=== PATIENT | male | born 1955 | race Caucasian/White ===

== ENCOUNTER 2017-12-27 18:35 | Emergency (ER) | payer MEDICAID ==
[~2017-12-27] VITALS: Ht 172.7 cm; Wt 81.6 kg
[~2017-12-27 18:35] MED LIST: ENA10T PO
[2017-12-27 18:36] VITALS: BP 126/69
== END 2017-12-27 21:54 | disposition left against medical advice (07) ==
LOC: EDBD 18:35 → ER 18:40
DX: F10.10 Alcohol abuse, uncomplicated (principal); Z53.21 Procedure and treatment not carried out due to patient leaving prior to being seen by health care provider

== ENCOUNTER 2018-08-30 18:10 | Emergency (ER) | payer MEDICAID ==
[~2018-08-30] VITALS: Ht 175.3 cm; Wt 86.2 kg
[2018-08-30 18:30] VITALS: BP 171/103
== END 2018-08-30 22:46 | disposition left against medical advice (07) ==
LOC: ER 18:10
DX: R10.9 Unspecified abdominal pain (principal); Z53.21 Procedure and treatment not carried out due to patient leaving prior to being seen by health care provider
CPT/HCPCS: 74176

== ENCOUNTER 2022-10-06 12:15 | Inpatient (IN) | payer OTHER, MEDICAID ==
[~2022-10-06] VITALS: Ht 175.3 cm; Wt 84.1 kg
[~2022-10-06 12:15] MED LIST changes: -ENA10T PO; +ENAL10TA12 PO
[2022-10-06 13:00] LABS: Basophils # (auto) 0.1 10 ^3/uL (0-0.2); Basophils % (auto) 2.3 % (0.0-2.0); Eosinophils # (auto) 0.1 10 ^3/uL (0-0.8); Eosinophils % (auto) 1.9 % (0.0-7.0); Hematocrit 50.2 % (41.0-53.0); Hemoglobin 17.2 g/dL (13.5-17.5); Lymphocytes # (auto) 1.4 10 ^3/uL (0.4-5.4); Lymphocytes % (auto) 22.6 % (10.0-50.0); Mean Corpuscular Hgb Conc. 34.4 g/dL (32.0-36.0); Mean Corpuscular Volume 98.9 fL (80.0-100.0); Monocytes # (auto) 0.8 10 ^3/uL (0-1.3); Monocytes % (auto) 12.2 % (0.0-12.0); Neutrophils # (auto) 3.9 10 ^3/uL (1.6-8.6); Nucleated Red Blood Cells % 0.2 %; Red Blood Cells 5.07 10^6/uL (4.5-5.90); Red Cell Distribution Width 12.8 % (11.8-14.3); White Blood Cell 6.4 10^3/uL (4.4-10.8)
[2022-10-06] MEDS ORDERED: predniSONE 20 MG TAB PO ONE ×2 (13:00→17:45)
[2022-10-06] MEDS ORDERED: ALBUTEROL SULF 2.5 MG/0.5ML(0.5%) NEB SOLN NEB ONE (13:00)
[2022-10-06] MEDS ORDERED: IPRATROPIUM BROM 0.5 MG/2.5ML INH SOL NEB ONE (13:00)
[2022-10-06 13:10] LABS: Albumin 3.3 g/dL (3.4-5.0); Calcium 8.7 mg/dL (8.5-10.1); Potassium 4.4 mmol/L (3.5-5.1)
[2022-10-06 13:13] LABS: Bilirubin, Total 1.8 mg/dL (0.2-1.0)
[2022-10-06] MEDS ORDERED: dilTIAZem 25 MG/5 ML VIAL IV ONE ×3 (14:15→16:15)
[2022-10-06] MEDS ORDERED: HEPARIN SODIUM (PORCINE) 5000 UNITS/ML 1ML VIAL IV ONE (14:15)
[2022-10-06] MEDS ORDERED: ASPirin 325 MG TAB PO ONE (14:15)
[2022-10-06] MEDS ORDERED: CLOPIDOGREL BISULFATE 75 MG TAB PO ONE (14:15)
[2022-10-06 15:10] LABS: INR 1.18 (0.9-1.15); Partial Thromboplastin Time 28.4 sec (24.6-33.4)
[2022-10-06] MEDS ORDERED: AMIODARONE HCL 150 MG in D5W 5% 100 ML IV ONE (16:45)
[2022-10-06] MEDS ORDERED: AMIODARONE 450mg/250ml AE 250 ML IV SCH (17:00)
[2022-10-06] MEDS ORDERED: MORPHINE SULFATE INJ 2 MG/ml SYRG IV PRN ×2 (17:15)
[2022-10-06] MEDS ORDERED: NITROGLYCERIN 0.4 MG SL TAB SL PRN (17:15)
[2022-10-06] MEDS ORDERED: HYDROcodone-ACET 5/325MG TAB PO PRN (17:15)
[2022-10-06] MEDS ORDERED: ACETAMINOPHEN 325 MG TAB PO PRN (17:15)
[2022-10-06] MEDS ORDERED: THIAMINE HCL 100 MG TAB PO ONE (17:30)
[2022-10-06] MEDS ORDERED: SODIUM CHLORIDE 0.9% 1,000 ML IV ONE ×2 (17:30)
[2022-10-06] MEDS ORDERED: CYANOCOBALAMIN 500 MCG TAB PO ONE (17:30)
[2022-10-06] MEDS ORDERED: LORazepam 2MG/ML-1ML VIAL IV PRN (17:30)
[2022-10-06] MEDS: HEPARIN DRIP/D5W 100UNITS/ML 250 ML IV SCH ×2 (17:34→18:13)
[2022-10-06] MEDS ORDERED: PANTOPRAZOLE 40 MG/10 ML VIAL INJ IV ONE (18:30)
[2022-10-06] MEDS ORDERED: NITROGLYCERIN 0.4MG/HR TOPICAL PATCH TD ONE (18:30)
[2022-10-06 21:13] LABS: Urine WBC None Seen /hpf (0 - 3)
[2022-10-06 21:25] LABS: Urine Bacteria NONE SEEN /hpf (None Seen); Urine Blood Negative /uL (Negative); Urine Specific Gravity 1.021 (1.001-1.035)
[2022-10-06 21:46] LABS: Amphetamine Screen, Urine POSITIVE (NEGATIVE); Barbiturate Scree,Urine NEGATIVE (NEGATIVE); Benzodiazephine Screen, Urine NEGATIVE (NEGATIVE); Cannabinoid Screen, Urine POSITIVE (NEGATIVE); Cocaine Screen, Urine NEGATIVE (NEGATIVE); Opiate Scree,Urine NEGATIVE (NEGATIVE)
[2022-10-06 21:52] LABS: Phencyclidine Screen, Urine NEGATIVE (NEGATIVE)
[2022-10-06] MEDS: ATORVASTATIN 20 MG TAB PO SCH (22:07)
[2022-10-06] MEDS: AMIODARONE 450mg/250ml AE 250 ML IV SCH (22:57)
[2022-10-07 01:10] LABS: INR 1.24 (0.9-1.15); Partial Thromboplastin Time 51.9 sec (24.6-33.4)
[2022-10-07] MEDS ORDERED: APIXABAN 5 MG TAB PO SCH (04:00)
[2022-10-07] MEDS: AMIODARONE 450mg/250ml AE 250 ML IV SCH (05:48)
[2022-10-07 06:45] LABS: Basophils # (auto) 0 10 ^3/uL (0-0.2); Basophils % (auto) 0.4 % (0.0-2.0); Eosinophils # (auto) 0.2 10 ^3/uL (0-0.8); Eosinophils % (auto) 3.1 % (0.0-7.0); Hematocrit 44.1 % (41.0-53.0); Hemoglobin 15.2 g/dL (13.5-17.5); Lymphocytes # (auto) 1.2 10 ^3/uL (0.4-5.4); Lymphocytes % (auto) 21.7 % (10.0-50.0); Mean Corpuscular Hgb Conc. 34.4 g/dL (32.0-36.0); Mean Corpuscular Volume 98.8 fL (80.0-100.0); Monocytes # (auto) 0.7 10 ^3/uL (0-1.3); Neutrophils # (auto) 3.4 10 ^3/uL (1.6-8.6); Neutrophils % (auto) 61.8 % (37.0-80.0); Nucleated Red Blood Cells % 0.6 %; Red Blood Cells 4.46 10^6/uL (4.5-5.90); Red Cell Distribution Width 12.9 % (11.8-14.3); White Blood Cell 5.5 10^3/uL (4.4-10.8)
[2022-10-07 06:55] LABS: INR 1.22 (0.9-1.15); Partial Thromboplastin Time 53.6 sec (24.6-33.4)
[2022-10-07 06:58] LABS: Albumin 2.9 g/dL (3.4-5.0); Calcium 8.1 mg/dL (8.5-10.1); Potassium 4.3 mmol/L (3.5-5.1)
[2022-10-07 07:02] LABS: BUN/Creatinine Ratio 18.2; Bilirubin, Total 2.5 mg/dL (0.2-1.0); Total Protein 7.2 g/dL (6.4-8.2)
[2022-10-07] MEDS ORDERED: METOPROLOL SUCCINATE XL 50 MG TAB PO SCH (10:00)
[2022-10-07] MEDS: CYANOCOBALAMIN 500 MCG TAB PO SCH (10:00)
[2022-10-07] MEDS ORDERED: PANTOPRAZOLE 40 MG/10 ML VIAL INJ IV SCH (10:00)
[2022-10-07] MEDS: THIAMINE HCL 100 MG TAB PO SCH (10:00)
[2022-10-07] MEDS: ASPirin 81 mg TAB PO SCH (10:00)
[2022-10-07] MEDS: CLOPIDOGREL BISULFATE 75 MG TAB PO SCH (13:14)
[2022-10-07 13:21] LABS: INR 1.2 (0.9-1.15); Partial Thromboplastin Time 53.5 sec (24.6-33.4)
[2022-10-07] MEDS: HEPARIN DRIP/D5W 100UNITS/ML 250 ML IV SCH (15:23)
[2022-10-07] MEDS ORDERED: APIXABAN 5 MG TAB PO ONE (16:00)
[2022-10-07] MEDS: FUROSEMIDE 20 MG/2 ML VIAL IV SCH (18:43)
[2022-10-07 20:22] VITALS: BP 101/74
[2022-10-07] MEDS ORDERED: IBUP400T22 PO (20:35)
[2022-10-07] MEDS ORDERED: CARVEDILOL 12.5 MG TAB PO SCH (22:00)
[2022-10-07 22:10] VITALS: BP 102/67
[2022-10-07] MEDS: ATORVASTATIN 20 MG TAB PO SCH (22:21)
[2022-10-07] MEDS: SACUBITRIL-VALSARTAN 24mg/26mg TAB PO SCH (22:22)
[2022-10-08] VITALS (7 sets, daily range): BP systolic 78–102; BP diastolic 51–76
[2022-10-08] MEDS ORDERED: APIXABAN 5 MG TAB PO SCH (04:00)
[2022-10-08] MEDS: FUROSEMIDE 20 MG/2 ML VIAL IV SCH ×2 (06:00→18:00)
[2022-10-08] MEDS: EMPAGLIFLOZIN 10 MG TAB PO SCH (06:18)
[2022-10-08 06:36] LABS: Basophils # (auto) 0 10 ^3/uL (0-0.2); Eosinophils # (auto) 0.1 10 ^3/uL (0-0.8); Monocytes # (auto) 0.6 10 ^3/uL (0-1.3); Red Cell Distribution Width 12.9 % (11.8-14.3)
[2022-10-08 06:39] LABS: Basophils % (auto) 0.6 % (0.0-2.0); Eosinophils % (auto) 2.8 % (0.0-7.0); Hematocrit 42.1 % (41.0-53.0); Hemoglobin 14.7 g/dL (13.5-17.5); Lymphocytes % (auto) 23.3 % (10.0-50.0); Mean Corpuscular Hemoglobin 34.6 pg (28.0-32.0); Mean Corpuscular Hgb Conc. 34.9 g/dL (32.0-36.0); Mean Corpuscular Volume 99.1 fL (80.0-100.0); Monocytes % (auto) 14.1 % (0.0-12.0); Neutrophils # (auto) 2.6 10 ^3/uL (1.6-8.6); Neutrophils % (auto) 59.2 % (37.0-80.0); Nucleated Red Blood Cells % 0.2 %; Red Blood Cells 4.25 10^6/uL (4.5-5.90); White Blood Cell 4.4 10^3/uL (4.4-10.8)
[2022-10-08 06:54] LABS: Albumin 2.7 g/dL (3.4-5.0); Bilirubin, Direct 0.6 mg/dL (0-0.2); Calcium 8.2 mg/dL (8.5-10.1); Potassium 4.2 mmol/L (3.5-5.1)
[2022-10-08 06:56] LABS: INR 1.34 (0.9-1.15); Partial Thromboplastin Time 31.1 sec (24.6-33.4)
[2022-10-08 06:58] LABS: BUN/Creatinine Ratio 19.6; Bilirubin, Total 1.5 mg/dL (0.2-1.0); Total Protein 6.9 g/dL (6.4-8.2)
[2022-10-08] MEDS ORDERED: METOPROLOL TARTRATE 50 MG TAB PO SCH (10:00)
[2022-10-08] MEDS: CYANOCOBALAMIN 500 MCG TAB PO SCH (10:29)
[2022-10-08] MEDS: THIAMINE HCL 100 MG TAB PO SCH (10:30)
[2022-10-08] MEDS: ASPirin 81 mg TAB PO SCH (10:30)
[2022-10-08] MEDS: PANTOPRAZOLE 40 MG TAB PO SCH (10:33)
[2022-10-08] MEDS: SACUBITRIL-VALSARTAN 24mg/26mg TAB PO SCH ×2 (10:34→21:44)
[2022-10-08] MEDS: CARVEDILOL 12.5 MG TAB PO SCH ×2 (10:39→21:44)
[2022-10-08] MEDS: LORazepam 0.5 MG TAB PO PRN (10:40)
[2022-10-08] MEDS ORDERED: FUROSEMIDE 40 MG/4 ML VIAL IV ONE (10:45)
[2022-10-08] MEDS: CLOPIDOGREL BISULFATE 75 MG TAB PO SCH (11:02)
[2022-10-08] MEDS: ATORVASTATIN 20 MG TAB PO SCH (22:02)
[2022-10-09 05:00] VITALS: BP 89/62
[2022-10-09] MEDS: FUROSEMIDE 20 MG/2 ML VIAL IV SCH ×2 (05:46→18:29)
[2022-10-09] MEDS: EMPAGLIFLOZIN 10 MG TAB PO SCH (06:46)
[2022-10-09 08:00] VITALS: BP 108/68
[2022-10-09 09:00] VITALS: BP 108/68
[2022-10-09] MEDS: THIAMINE HCL 100 MG TAB PO SCH (10:28)
[2022-10-09] MEDS: CARVEDILOL 12.5 MG TAB PO SCH ×2 (10:28→21:52)
[2022-10-09] MEDS: ASPirin 81 mg TAB PO SCH (10:28)
[2022-10-09] MEDS: PANTOPRAZOLE 40 MG TAB PO SCH (10:29)
[2022-10-09] MEDS: CYANOCOBALAMIN 500 MCG TAB PO SCH (10:29)
[2022-10-09] MEDS: SACUBITRIL-VALSARTAN 24mg/26mg TAB PO SCH ×2 (10:29→21:52)
[2022-10-09 10:37] LABS: Basophils # (auto) 0 10 ^3/uL (0-0.2); Lymphocytes # (auto) 0.8 10 ^3/uL (0.4-5.4); Monocytes # (auto) 0.7 10 ^3/uL (0-1.3); Neutrophils # (auto) 3.7 10 ^3/uL (1.6-8.6)
[2022-10-09 10:42] LABS: Basophils % (auto) 0.5 % (0.0-2.0); Eosinophils # (auto) 0.2 10 ^3/uL (0-0.8); Eosinophils % (auto) 2.9 % (0.0-7.0); Hematocrit 45.1 % (41.0-53.0); Hemoglobin 15.6 g/dL (13.5-17.5); Lymphocytes % (auto) 15.1 % (10.0-50.0); Mean Corpuscular Hemoglobin 34.3 pg (28.0-32.0); Mean Corpuscular Hgb Conc. 34.7 g/dL (32.0-36.0); Mean Corpuscular Volume 98.9 fL (80.0-100.0); Monocytes % (auto) 13.5 % (0.0-12.0); Nucleated Red Blood Cells % 0.1 %; Red Blood Cells 4.56 10^6/uL (4.5-5.90); Red Cell Distribution Width 12.6 % (11.8-14.3); White Blood Cell 5.5 10^3/uL (4.4-10.8)
[2022-10-09 11:49] LABS: Albumin 2.9 g/dL (3.4-5.0); Bilirubin, Total 1.2 mg/dL (0.2-1.0); Calcium 8.5 mg/dL (8.5-10.1); Total Protein 7.1 g/dL (6.4-8.2)
[2022-10-09 13:00] VITALS: BP 111/61
[2022-10-09 16:51] VITALS: BP 109/67
[2022-10-09 21:55] VITALS: BP 119/64
[2022-10-09] MEDS: ATORVASTATIN 20 MG TAB PO SCH (22:49)
[2022-10-09] MEDS: LORazepam 0.5 MG TAB PO PRN (22:59)
[2022-10-10 06:00] VITALS: BP 95/70
[2022-10-10] MEDS: FUROSEMIDE 20 MG/2 ML VIAL IV SCH ×2 (06:16→19:09)
[2022-10-10] MEDS: EMPAGLIFLOZIN 10 MG TAB PO SCH (06:18)
[2022-10-10 07:04] LABS: Basophils # (auto) 0 10 ^3/uL (0-0.2); Eosinophils # (auto) 0.2 10 ^3/uL (0-0.8); Lymphocytes # (auto) 0.8 10 ^3/uL (0.4-5.4); Neutrophils # (auto) 3.8 10 ^3/uL (1.6-8.6)
[2022-10-10 07:08] LABS: Basophils % (auto) 0.6 % (0.0-2.0); Eosinophils % (auto) 3.1 % (0.0-7.0); Hematocrit 48.1 % (41.0-53.0); Hemoglobin 16.9 g/dL (13.5-17.5); Lymphocytes % (auto) 14.4 % (10.0-50.0); Mean Corpuscular Hemoglobin 34.9 pg (28.0-32.0); Mean Corpuscular Hgb Conc. 35.1 g/dL (32.0-36.0); Mean Corpuscular Volume 99.3 fL (80.0-100.0); Monocytes # (auto) 0.9 10 ^3/uL (0-1.3); Monocytes % (auto) 15.7 % (0.0-12.0); Neutrophils % (auto) 66.2 % (37.0-80.0); Nucleated Red Blood Cells % 0.4 %; Red Blood Cells 4.84 10^6/uL (4.5-5.90); Red Cell Distribution Width 12.6 % (11.8-14.3); White Blood Cell 5.7 10^3/uL (4.4-10.8)
[2022-10-10 08:00] VITALS: BP 153/87
[2022-10-10 08:15] LABS: Albumin 2.8 g/dL (3.4-5.0); BUN/Creatinine Ratio 22.2; Bilirubin, Total 1.3 mg/dL (0.2-1.0); Calcium 8.7 mg/dL (8.5-10.1); Total Protein 7.6 g/dL (6.4-8.2)
[2022-10-10 08:35] LABS: Potassium 3.5 mmol/L (3.5-5.1)
[2022-10-10 09:00] VITALS: BP 153/87
[2022-10-10] MEDS ORDERED: ENOXAPARIN SOD 80 MG/0.8ML SYRINGE SC ONE (10:45)
[2022-10-10] MEDS: CYANOCOBALAMIN 500 MCG TAB PO SCH (11:57)
[2022-10-10] MEDS: ASPirin 81 mg TAB PO SCH (11:57)
[2022-10-10] MEDS: THIAMINE HCL 100 MG TAB PO SCH (11:57)
[2022-10-10] MEDS: CARVEDILOL 12.5 MG TAB PO SCH ×2 (11:57→21:31)
[2022-10-10] MEDS: PANTOPRAZOLE 40 MG TAB PO SCH (11:57)
[2022-10-10] MEDS: SACUBITRIL-VALSARTAN 24mg/26mg TAB PO SCH ×2 (12:24→21:32)
[2022-10-10 20:15] VITALS: BP 100/60
[2022-10-10] MEDS: ATORVASTATIN 20 MG TAB PO SCH (21:32)
[2022-10-10] MEDS: LORazepam 0.5 MG TAB PO PRN (21:33)
[2022-10-10 22:00] VITALS: BP 100/60
[2022-10-11 05:00] VITALS: BP 89/64
[2022-10-11] MEDS: FUROSEMIDE 20 MG/2 ML VIAL IV SCH (06:00)
[2022-10-11] MEDS: EMPAGLIFLOZIN 10 MG TAB PO SCH (06:37)
[2022-10-11 07:21] LABS: White Blood Cell 7.1 10^3/uL (4.4-10.8)
[2022-10-11 07:23] LABS: Hematocrit 51.8 % (41.0-53.0); Hemoglobin 18.3 g/dL (13.5-17.5); Mean Corpuscular Hemoglobin 34.4 pg (28.0-32.0); Mean Corpuscular Hgb Conc. 35.3 g/dL (32.0-36.0); Mean Corpuscular Volume 97.4 fL (80.0-100.0); Red Blood Cells 5.32 10^6/uL (4.5-5.90)
[2022-10-11 07:32] LABS: Albumin 3.1 g/dL (3.4-5.0); Potassium 3.6 mmol/L (3.5-5.1)
[2022-10-11 07:38] LABS: Bilirubin, Total 1.5 mg/dL (0.2-1.0); Total Protein 8.2 g/dL (6.4-8.2)
[2022-10-11 08:19] LABS: Band Neutrophils % (manual) 0; Basophils % (manual) 0 (0.0-2.0); Blast Cells 0; Metamyelocytes % 0; Myelocytes % 0; Promyelocytes % 0; Reactive Lymphocytes 0
[2022-10-11 08:57] VITALS: BP 110/74
[2022-10-11] MEDS: SACUBITRIL-VALSARTAN 24mg/26mg TAB PO SCH ×2 (09:14→22:00)
[2022-10-11] MEDS: ASPirin 81 mg TAB PO SCH (09:14)
[2022-10-11] MEDS: CYANOCOBALAMIN 500 MCG TAB PO SCH (09:35)
[2022-10-11] MEDS: PANTOPRAZOLE 40 MG TAB PO SCH (09:35)
[2022-10-11] MEDS: THIAMINE HCL 100 MG TAB PO SCH (09:35)
[2022-10-11] MEDS: CARVEDILOL 12.5 MG TAB PO SCH (09:35)
[2022-10-11] MEDS ORDERED: HEPARIN SODIUM (PORCINE) 5000 UNITS/ML 1ML VIAL ONE (12:03)
[2022-10-11] MEDS ORDERED: ANGIOMAX 250 MG VIAL IV ONE ×2 (12:03→13:35)
[2022-10-11] MEDS ORDERED: fentaNYL CITRATE 100 MCG/2 ML VL ONE (12:04)
[2022-10-11] MEDS ORDERED: MIDAZOLAM HCL 2MG/2ML 2ml VIAL (1mg/ml) ONE (12:04)
[2022-10-11] MEDS ORDERED: VERAPAMIL 2.5MG/ML INJ 2ML VIAL IV ONE (12:04)
[2022-10-11] MEDS ORDERED: SODIUM CHL 0.9% 50 ML ONE ×2 (12:04→13:35)
[2022-10-11] MEDS ORDERED: LIDOCAINE 2%HCL (LOCAL ANESTH.) INJ 10ml MDV ONE (12:04)
[2022-10-11] MEDS ORDERED: IODIXANOL 320MG/ML 100ML BTL IV ONE (12:08)
[2022-10-11 13:00] VITALS: BP 105/80
[2022-10-11 15:31] LABS: Eosinophils % (manual) 4 (0-7); Lymphocytes % (manual) 9 (10.0-50.0); Monocytes % (manual) 30 (0-12)
[2022-10-11 16:16] VITALS: BP 101/69
[2022-10-11 20:10] VITALS: BP 100/68
[2022-10-11 22:00] VITALS: BP 101/68
[2022-10-11] MEDS: CARVEDILOL 3.125 MG TAB PO SCH (22:00)
[2022-10-11] MEDS: ATORVASTATIN 20 MG TAB PO SCH (22:00)
[2022-10-11] MEDS: LORazepam 0.5 MG TAB PO PRN (23:45)
[2022-10-12 05:00] VITALS: BP 99/63
[2022-10-12] MEDS: EMPAGLIFLOZIN 10 MG TAB PO SCH (06:03)
[2022-10-12 06:18] LABS: Mean Corpuscular Volume 97.9 fL (80.0-100.0); Red Cell Distribution Width 12.9 % (11.8-14.3)
[2022-10-12 06:22] LABS: Hematocrit 51.1 % (41.0-53.0); Hemoglobin 17.6 g/dL (13.5-17.5); Mean Corpuscular Hemoglobin 33.8 pg (28.0-32.0); Mean Corpuscular Hgb Conc. 34.6 g/dL (32.0-36.0); Red Blood Cells 5.21 10^6/uL (4.5-5.90); White Blood Cell 8.7 10^3/uL (4.4-10.8)
[2022-10-12 06:40] LABS: Calcium 8.7 mg/dL (8.5-10.1)
[2022-10-12 06:45] LABS: BUN/Creatinine Ratio 21.9; Bilirubin, Total 2.2 mg/dL (0.2-1.0); Total Protein 7.6 g/dL (6.4-8.2)
[2022-10-12 06:49] LABS: Basophils % (manual) 0 (0.0-2.0); Blast Cells 0; Metamyelocytes % 0; Myelocytes % 0; Promyelocytes % 0; Reactive Lymphocytes 0
[2022-10-12 09:00] VITALS: BP 131/113
[2022-10-12 09:22] LABS: Band Neutrophils % (manual) 15; Eosinophils % (manual) 2 (0-7); Lymphocytes % (manual) 8 (10.0-50.0); Monocytes % (manual) 15 (0-12)
[2022-10-12] MEDS: ASPirin 81 mg TAB PO SCH (09:29)
[2022-10-12] MEDS: SACUBITRIL-VALSARTAN 24mg/26mg TAB PO SCH (09:29)
[2022-10-12] MEDS: CYANOCOBALAMIN 500 MCG TAB PO SCH (09:30)
[2022-10-12] MEDS: THIAMINE HCL 100 MG TAB PO SCH (09:31)
[2022-10-12] MEDS: PANTOPRAZOLE 40 MG TAB PO SCH (09:31)
[2022-10-12] MEDS: CARVEDILOL 3.125 MG TAB PO SCH (09:40)
[2022-10-12 13:00] VITALS: BP 108/76
[2022-10-12] MEDS ORDERED: APIX5TAB4 PO (13:34)
[2022-10-12] MEDS ORDERED: ACAM1TAB4 OR (13:34)
[2022-10-12] MEDS ORDERED: THIA100T10 PO (13:34)
[2022-10-12] MEDS ORDERED: FUR20T PO (13:34)
[2022-10-12] MEDS ORDERED: SACU1TAB PO (13:34)
[2022-10-12] MEDS ORDERED: CAR3125T PO (13:34)
[2022-10-12] MEDS ORDERED: APIXABAN 5 MG TAB PO SCH (22:00)
[2022-10-13] MEDS ORDERED: FUROSEMIDE 40 MG TAB PO SCH (10:00)
== END 2022-10-12 16:47 | disposition home or self-care (01) | DRG 280 ==
LOC: ER 12:15 → TELE 17:19 → TELE-WESTW 10-07 19:58
PROVIDERS: ADMIT Registered Nurse; ATTEND Student in an Organized Health Care Education/Training Program
PROC: B2111ZZ Fluoroscopy of Multiple Coronary Arteries using Low Osmolar Contrast (ICD-10-PCS; principal; 2022-10-11)
PROC: 4A023N7 Measurement of Cardiac Sampling and Pressure, Left Heart, Percutaneous Approach (ICD-10-PCS; 2022-10-11)
DX: I11.0 Hypertensive heart disease with heart failure (principal); I50.23 Acute on chronic systolic (congestive) heart failure; I21.A1 Myocardial infarction type 2; J96.01 Acute respiratory failure with hypoxia; U07.1 COVID-19; E44.0 Moderate protein-calorie malnutrition; I42.9 Cardiomyopathy, unspecified; E66.9 Obesity, unspecified; Z20.822 Contact with and (suspected) exposure to COVID-19; F10.10 Alcohol abuse, uncomplicated; F15.10 Other stimulant abuse, uncomplicated; F12.90 Cannabis use, unspecified, uncomplicated; I25.10 Atherosclerotic heart disease of native coronary artery without angina pectoris; I48.91 Unspecified atrial fibrillation; J44.9 Chronic obstructive pulmonary disease, unspecified; Z79.899 Other long term (current) drug therapy; Z82.49 Family history of ischemic heart disease and other diseases of the circulatory system; Z88.1 Allergy status to other antibiotic agents; Z68.26 Body mass index [BMI] 26.0-26.9, adult; Z72.0 Tobacco use; Z88.8 Allergy status to other drugs, medicaments and biological substances
CPT/HCPCS: 36415; 71046; 76705; 80053; 80061; 80307; 80320; 81001; 82248; 82962; 83036; 83735; 83880; 84443; 84484; 85007; 85025; 85027; 85379; 85610; 85730; 86850; 86900; 86901; 87426; 87804; 93005; 93306; 94640; 96374; 96375; 96376; 99152; 99291; C9113; G0378; J2001; J2250; J7060; Q9967

== ENCOUNTER 2024-03-23 15:16 | Emergency (ER) | payer OTHER, MEDICAID ==
[~2024-03-23] VITALS: Ht 175.3 cm; Wt 99.5 kg
[~2024-03-23 15:16] MED LIST changes: +ACAM1TAB OR; +APIX5TAB4 PO; +CARV-214 PO; -ENAL10TA12 PO; +FUR20T PO; +SACU1TAB PO; +THIA100T10 PO
[2024-03-23 15:56] VITALS: BP 131/81; PULSE 81; RESP 16; TEMP 98.7; O2SAT 96
[2024-03-23] MEDS ORDERED: ALBU108A5 IN (16:08)
[2024-03-23] MEDS ORDERED: SACU1TAB PO (16:08)
[2024-03-23] MEDS ORDERED: CARV-214 PO (16:08)
[2024-03-23] MEDS ORDERED: APIX5TAB4 PO (16:08)
[2024-03-23] MEDS ORDERED: FUR20T PO (16:08)
== END 2024-03-23 16:23 | disposition home or self-care (01) ==
LOC: ER 15:16
DX: I11.0 Hypertensive heart disease with heart failure (principal); I50.9 Heart failure, unspecified; J44.9 Chronic obstructive pulmonary disease, unspecified; Z76.0 Encounter for issue of repeat prescription; Z87.891 Personal history of nicotine dependence; Z88.1 Allergy status to other antibiotic agents

== ENCOUNTER 2024-04-03 18:26 | Inpatient (IN) | payer OTHER, MEDICAID ==
[~2024-04-03] VITALS: Ht 175.3 cm; Wt 100.0 kg
[~2024-04-03 18:26] MED LIST changes: +ALBU108A5 IN
[2024-04-03] MEDS: ALBUTEROL SULF 2.5 MG/0.5ML(0.5%) NEB SOLN ONE (20:03)
[2024-04-03 20:04] VITALS: O2SAT 94
[2024-04-03] MEDS: ACETAMINOPHEN 325 MG TAB PO ONE (20:21)
[2024-04-03] MEDS: ASPirin 81 mg TAB PO ONE (20:21)
[2024-04-03] MEDS: ALBUTEROL SULF 2.5 MG/0.5ML(0.5%) NEB SOLN NEB ONE (20:31)
[2024-04-03] MEDS: FUROSEMIDE 40 MG/4 ML VIAL IV ONE (20:39)
[2024-04-03] MEDS: ONDANSETRON HCL 4 MG/2 ML VIAL IV ONE (20:40)
[2024-04-03] MEDS: SODIUM CHLORIDE 0.9% 500 ML IV ONE (20:45)
[2024-04-03 20:52] LABS: Basophils # (auto) 0 10 ^3/uL (0-0.2); Basophils % (auto) 0.7 % (0.0-2.0); Eosinophils # (auto) 0.2 10 ^3/uL (0-0.8); Hematocrit 39.7 % (41.0-53.0); Hemoglobin 13.6 g/dL (13.5-17.5); Lymphocytes # (auto) 1.6 10 ^3/uL (0.4-5.4); Lymphocytes % (auto) 27.7 % (10.0-50.0); Mean Corpuscular Hemoglobin 34.7 pg (28.0-32.0); Mean Corpuscular Hgb Conc. 34.4 g/dL (32.0-36.0); Mean Corpuscular Volume 100.9 fL (80.0-100.0); Monocytes # (auto) 0.8 10 ^3/uL (0-1.3); Monocytes % (auto) 13.4 % (0.0-12.0); Neutrophils # (auto) 3.2 10 ^3/uL (1.6-8.6); Neutrophils % (auto) 54.2 % (37.0-80.0); Nucleated Red Blood Cells % 0.2 %; Red Blood Cells 3.93 10^6/uL (4.5-5.90); Red Cell Distribution Width 13.5 % (11.8-14.3); White Blood Cell 5.8 10^3/uL (4.4-10.8)
[2024-04-03 21:09] LABS: Alanine Aminotransferase 88 U/L (7-40); Albumin 3.3 g/dL (3.2-4.8); Alkaline Phosphatase 51 U/L (46-116); Anion Gap 11 (5-15); Aspartate Aminotransferase 111 U/L (13-40); BUN/Creatinine Ratio 7.4 (10.0-20.0); Bilirubin, Total 1.1 mg/dL (0.2-1.0); Blood Alcohol 211.1 mg/dL (<10); Blood Urea Nitrogen 8 mg/dL (9-23); Calcium 8.8 mg/dL (8.5-10.1); Carbon Dioxide 19 mmol/L (20-30); Chloride 96 mmol/L (98-107); Glucose 102 mg/dL (74-106); Magnesium 1.6 mg/dL (1.6-2.6); Potassium 3.6 mmol/L (3.5-5.1); Sodium 126 mmol/L (136-145); Total Protein 7.4 g/dL (5.7-8.2)
[2024-04-03 21:15] LABS: Lactic Acid w/Reflex 2.3 mmol/L (0.4-2.0)
[2024-04-03 21:21] LABS: INR 1.38 (0.9-1.15); Partial Thromboplastin Time 31.2 SEC (24.5-34.5); Prothrombin Time 14.3 sec (9.3-11.8)
[2024-04-03] MEDS: cefTRIAXone 1GM/50ML D5W 50 ML IV ONE (21:21)
[2024-04-03] MEDS: ALBUMIN 25% 100 ML IV ONE (21:33)
[2024-04-03 22:00] VITALS: BP 95/48; PULSE 84; RESP 16; O2SAT 96
[2024-04-03] MEDS ORDERED: NITROGLYCERIN 0.4 MG SL TAB SL PRN (22:30)
[2024-04-03] MEDS ORDERED: ACETAMINOPHEN 325 MG TAB PO PRN (22:30)
[2024-04-03] MEDS ORDERED: MORPHINE SULFATE INJ 2 MG/ml SYRG IV PRN (22:30)
[2024-04-03] MEDS ORDERED: ALBUTEROL SULF 2.5 MG/0.5ML(0.5%) NEB SOLN NEB PRN ×2 (22:30)
[2024-04-03] MEDS ORDERED: TEMAZEPAM 15 MG CAP PO PRN (22:30)
[2024-04-03] MEDS: AZITHROMYCIN 500MG/ 250ML 250 ML IV ONE (22:46)
[2024-04-04 05:16] LABS: Basophils # (auto) 0 10 ^3/uL (0-0.2); Eosinophils # (auto) 0.2 10 ^3/uL (0-0.8); Lymphocytes # (auto) 1.3 10 ^3/uL (0.4-5.4); Monocytes # (auto) 0.9 10 ^3/uL (0-1.3); Neutrophils # (auto) 2.7 10 ^3/uL (1.6-8.6)
[2024-04-04 05:18] LABS: Basophils % (auto) 0.7 % (0.0-2.0); Eosinophils % (auto) 4.5 % (0.0-7.0); Hematocrit 38.7 % (41.0-53.0); Hemoglobin 13.3 g/dL (13.5-17.5); Lymphocytes % (auto) 25.6 % (10.0-50.0); Mean Corpuscular Hgb Conc. 34.3 g/dL (32.0-36.0); Monocytes % (auto) 17.5 % (0.0-12.0); Neutrophils % (auto) 51.7 % (37.0-80.0); Nucleated Red Blood Cells % 0.2 %; Red Blood Cells 3.79 10^6/uL (4.5-5.90); Red Cell Distribution Width 13.1 % (11.8-14.3); White Blood Cell 5.1 10^3/uL (4.4-10.8)
[2024-04-04 05:27] LABS: Calcium 8.5 mg/dL (8.5-10.1); Chloride 98 mmol/L (98-107); Potassium 3.4 mmol/L (3.5-5.1); Sodium 128 mmol/L (136-145)
[2024-04-04 05:28] LABS: Anion Gap 10 (5-15); Carbon Dioxide 20 mmol/L (20-30)
[2024-04-04 05:33] LABS: BUN/Creatinine Ratio 7.7 (10.0-20.0); Blood Urea Nitrogen 7 mg/dL (9-23); Glucose 90 mg/dL (74-106)
[2024-04-04] MEDS ORDERED: FUROSEMIDE 20 MG/2 ML VIAL IV SCH (06:00)
[2024-04-04] MEDS: FUROSEMIDE 20 MG/2 ML VIAL IV SCH (06:10)
[2024-04-04 07:07] VITALS: O2SAT 97
[2024-04-04 08:17] VITALS: PULSE 93; RESP 18; O2SAT 95
[2024-04-04] MEDS ORDERED: ASPirin 81 mg TAB PO SCH (10:00)
[2024-04-04] MEDS: APIXABAN 5 MG TAB PO SCH (10:59)
[2024-04-04] MEDS: SACUBITRIL-VALSARTAN 24mg/26mg TAB PO SCH (11:04)
[2024-04-04] MEDS: CARVEDILOL 3.125 MG TAB PO SCH (11:04)
[2024-04-04] MEDS: SPIRONOLACTONE 25 MG TAB PO ONE (11:12)
[2024-04-04] MEDS: POTASSIUM CHL 20 Meq TABLET PO ONE (11:13)
[2024-04-04] MEDS: PANTOPRAZOLE 40 MG TAB PO ONE (11:13)
[2024-04-04] MEDS: ONDANSETRON HCL 4 MG/2 ML VIAL IV PRN (12:22)
[2024-04-04] MEDS: MAGNESIUM OXIDE 400 MG TAB PO ONE (13:42)
[2024-04-04] MEDS ORDERED: ALBU108A5 INH (15:54)
[2024-04-04 21:00] VITALS: BP 135/81; PULSE 86; RESP 16; TEMP 98; O2SAT 96
[2024-04-04] MEDS: LORazepam 2MG/ML-1ML VIAL IV PRN (22:45)
[2024-04-05] VITALS (8 sets, daily range): BP systolic 104–133; BP diastolic 71–100; PULSE 55–98; RESP 16–20; TEMP 97.7–98.5; O2SAT 92–98
[2024-04-05] MEDS ORDERED: IBUP-1456 PO (01:09)
[2024-04-05] MEDS: PANTOPRAZOLE 40 MG TAB PO SCH (06:16)
[2024-04-05 09:16] LABS: Hemoglobin 14.3 g/dL (13.5-17.5)
[2024-04-05 09:20] LABS: Alanine Aminotransferase 72 U/L (7-40); Albumin 3.7 g/dL (3.2-4.8); Alkaline Phosphatase 51 U/L (46-116); Anion Gap 4 (5-15); Aspartate Aminotransferase 82 U/L (13-40); BUN/Creatinine Ratio 11.7 (10.0-20.0); Blood Urea Nitrogen 11 mg/dL (9-23); Calcium 9.6 mg/dL (8.5-10.1); Carbon Dioxide 28 mmol/L (20-30); Chloride 101 mmol/L (98-107); Glucose 113 mg/dL (74-106); Hematocrit 41.6 % (41.0-53.0); Mean Corpuscular Hemoglobin 35.3 pg (28.0-32.0); Mean Corpuscular Hgb Conc. 34.4 g/dL (32.0-36.0); Mean Corpuscular Volume 102.5 fL (80.0-100.0); Potassium 4.1 mmol/L (3.5-5.1); Red Blood Cells 4.06 10^6/uL (4.5-5.90); Red Cell Distribution Width 13.6 % (11.8-14.3); White Blood Cell 4.9 10^3/uL (4.4-10.8)
[2024-04-05 09:21] LABS: Bilirubin, Total 2.5 mg/dL (0.2-1.0); Total Protein 8.1 g/dL (5.7-8.2)
[2024-04-05 09:24] LABS: Sodium 133 mmol/L (136-145)
[2024-04-05 09:25] LABS: Band Neutrophils % (manual) 0; Basophils % (manual) 0 (0.0-2.0); Blast Cells 0; Metamyelocytes % 0; Myelocytes % 0; Promyelocytes % 0; Reactive Lymphocytes 0
[2024-04-05] MEDS: POTASSIUM CHL 20 Meq TABLET PO ONE (10:59)
[2024-04-05] MEDS: SPIRONOLACTONE 25 MG TAB PO SCH (11:00)
[2024-04-05] MEDS: EMPAGLIFLOZIN 10 MG TAB PO SCH (11:00)
[2024-04-05] MEDS: FOLIC ACID 1 MG TAB PO SCH (11:00)
[2024-04-05] MEDS: THIAMINE HCL 100 MG TAB PO SCH (11:00)
[2024-04-05 11:08] LABS: Urine Bacteria None Seen /hpf (None Seen); Urine WBC None Seen /hpf (0 - 3)
[2024-04-05 11:28] LABS: Urine Blood Negative /uL (Negative); Urine Clarity Clear (Clear); Urine Color Light-Yellow (Yellow); Urine Protein, UAD Negative (Negative); Urine Specific Gravity 1.006 (1.001-1.035); Urine Urobilinogen Normal (Negative); Urine pH 5.5 (5.0-9.0)
[2024-04-05 11:46] LABS: Amphetamine Screen, Urine Pos (NEGATIVE); Barbiturate Scree,Urine Neg (NEGATIVE); Benzodiazephine Screen, Urine Neg (NEGATIVE); Cannabinoid Screen, Urine Neg (NEGATIVE); Cocaine Screen, Urine Neg (NEGATIVE); Opiate Scree,Urine Neg (NEGATIVE); Phencyclidine Screen, Urine Neg (NEGATIVE)
[2024-04-05 12:41] LABS: Eosinophils % (manual) 3 (0-7); Lymphocytes % (manual) 17 (10.0-50.0); Monocytes % (manual) 17 (0-12); Platelet Estimate Decreased
[2024-04-05 12:42] LABS: Macrocytosis Slight
[2024-04-05 13:04] LABS: COVID19 ANTIGEN SOFIA FIA NEGATIVE (NEGATIVE); Rapid Influenza A Negative (Negative); Rapid Influenza B Negative (Negative)
[2024-04-05] MEDS: ASPirin 81 mg TAB PO SCH (13:35)
[2024-04-05] MEDS ORDERED: EMPA1TAB PO (13:49)
[2024-04-05] MEDS ORDERED: ASPI-325 PO (13:49)
[2024-04-05] MEDS: chlordiazePOXIDE HCL 25 MG CAP PO PRN (16:03)
[2024-04-05] MEDS: PNEUMOCOCCAL VACC POLYS 25 MCG/0.5 ML VIAL IM ONE (16:26)
== END 2024-04-05 17:42 | disposition home or self-care (01) | DRG 280 ==
LOC: ER 18:26 → TELE 22:36 → TELE-WESTW 22:36
PROVIDERS: ADMIT Internal Medicine Geriatric Medicine; ATTEND Internal Medicine Geriatric Medicine
DX: I11.0 Hypertensive heart disease with heart failure (principal); I50.23 Acute on chronic systolic (congestive) heart failure; I21.A1 Myocardial infarction type 2; J96.21 Acute and chronic respiratory failure with hypoxia; E87.1 Hypo-osmolality and hyponatremia; E87.20 Acidosis, unspecified; F10.129 Alcohol abuse with intoxication, unspecified; J44.9 Chronic obstructive pulmonary disease, unspecified; Z20.822 Contact with and (suspected) exposure to COVID-19; E78.5 Hyperlipidemia, unspecified; I25.10 Atherosclerotic heart disease of native coronary artery without angina pectoris; I48.91 Unspecified atrial fibrillation; I08.1 Rheumatic disorders of both mitral and tricuspid valves; R74.01 Elevation of levels of liver transaminase levels; Z88.1 Allergy status to other antibiotic agents; Z83.3 Family history of diabetes mellitus; Z82.49 Family history of ischemic heart disease and other diseases of the circulatory system; Z82.5 Family history of asthma and other chronic lower respiratory diseases; Y90.7 Blood alcohol level of 200-239 mg/100 ml
CPT/HCPCS: 36415; 71045; 80048; 80053; 80307; 80320; 81001; 83605; 83735; 83880; 84443; 84484; 85007; 85025; 85027; 85610; 85730; 87040; 87086; 87426; 87804; 93005; 93306; 94640; 96361; 96365; 96368; G0378; J2405; P9047

== ENCOUNTER 2024-07-23 21:54 | Inpatient (IN) | payer OTHER, MEDICAID ==
[~2024-07-23] VITALS: Ht 175.3 cm; Wt 86.6 kg
[~2024-07-23 21:54] MED LIST changes: -ACAM1TAB OR; -ALBU108A5 IN; +ALBU108A5 INH; +ASPI-325 PO; +EMPA1TAB PO; -FUR20T PO; +FURO20TA4 PO; +IBUP-1456 PO; -THIA100T10 PO
[2024-07-23 22:57] LABS: Basophils # (auto) 0 10 ^3/uL (0-0.2); Hemoglobin 15.1 g/dL (13.5-17.5); Mean Corpuscular Hemoglobin 37.5 pg (28.0-32.0); Monocytes # (auto) 0.9 10 ^3/uL (0-1.3); Red Blood Cells 4.02 10^6/uL (4.5-5.90); White Blood Cell 7.6 10^3/uL (4.4-10.8)
[2024-07-23 22:59] LABS: Basophils % (auto) 0.5 % (0.0-2.0); Eosinophils # (auto) 0.3 10 ^3/uL (0-0.8); Eosinophils % (auto) 3.5 % (0.0-7.0); Hematocrit 42.3 % (41.0-53.0); Lymphocytes % (auto) 25.7 % (10.0-50.0); Mean Corpuscular Hgb Conc. 35.6 g/dL (32.0-36.0); Mean Corpuscular Volume 105.4 fL (80.0-100.0); Monocytes % (auto) 12.1 % (0.0-12.0); Neutrophils # (auto) 4.4 10 ^3/uL (1.6-8.6); Neutrophils % (auto) 58.2 % (37.0-80.0); Nucleated Red Blood Cells % 0.2 %; Platelet Count (auto) 146 10^3/uL (140-450); Red Cell Distribution Width 13.6 % (11.8-14.3)
[2024-07-23 23:10] LABS: Alanine Aminotransferase 54 U/L (7-40); Albumin 3.8 g/dL (3.2-4.8); Alkaline Phosphatase 56 U/L (46-116); Anion Gap 7 (5-15); Aspartate Aminotransferase 67 U/L (13-40); BUN/Creatinine Ratio 7.1 (10.0-20.0); Bilirubin, Total 0.9 mg/dL (0.2-1.0); Blood Urea Nitrogen 7 mg/dL (9-23); Calcium 9.2 mg/dL (8.7-10.4); Carbon Dioxide 20 mmol/L (20-30); Chloride 112 mmol/L (98-107); Glucose 93 mg/dL (74-106); Sodium 139 mmol/L (136-145); Total Protein 8.3 g/dL (5.7-8.2)
[2024-07-23 23:21] VITALS: PULSE 125; RESP 17; O2SAT 94
[2024-07-23] MEDS: ASPirin-EC 325mg tab PO ONE (23:44)
[2024-07-23] MEDS: levoFLOXacin 500MG 100 ML IV ONE (23:44)
[2024-07-23] MEDS: methylPREDNISolone SOD SUCC 125 MG/2 ML VL IV ONE (23:44)
[2024-07-23] MEDS: METOPROLOL TARTRATE 1MG/1ML-5ML VIAL IV SCH (23:55)
[2024-07-24] MEDS: ASPirin-EC 325mg tab PO ONE
[2024-07-24] MEDS: ENOXAPARIN SOD 100 MG/1 ML SYRINGE SC ONE (01:01)
[2024-07-24 01:04] LABS: Urine Bacteria None Seen /hpf (None Seen)
[2024-07-24] MEDS: IPRATROPIUM BROM 0.5 MG/2.5ML INH SOL NEB ONE (01:05)
[2024-07-24] MEDS: ALBUTEROL SULF 2.5 MG/0.5ML(0.5%) NEB SOLN NEB ONE (01:05)
[2024-07-24 01:22] LABS: Urine Blood Negative /uL (Negative); Urine Clarity Clear (Clear); Urine Color Light-Yellow (Yellow); Urine Protein, UAD TRACE (Negative); Urine Specific Gravity 1.009 (1.001-1.035); Urine Urobilinogen Normal (Negative); Urine WBC <1 /hpf (0 - 3); Urine pH 5.5 (5.0-9.0)
[2024-07-24 01:40] VITALS: PULSE 125; RESP 17; O2SAT 94
[2024-07-24] MEDS ORDERED: ALBUTEROL SULF 2.5 MG/0.5ML(0.5%) NEB SOLN NEB PRN (03:15)
[2024-07-24 03:17] VITALS: BP 122/86; PULSE 110; RESP 18; O2SAT 98
[2024-07-24 03:46] LABS: Amphetamine Screen, Urine Pos (NEGATIVE); Benzodiazephine Screen, Urine Neg (NEGATIVE)
[2024-07-24 03:47] LABS: Barbiturate Scree,Urine Neg (NEGATIVE); Cannabinoid Screen, Urine Pos (NEGATIVE); Cocaine Screen, Urine Neg (NEGATIVE); Opiate Scree,Urine Neg (NEGATIVE); Phencyclidine Screen, Urine Neg (NEGATIVE)
[2024-07-24] MEDS: predniSONE 20 MG TAB PO ONE (03:52)
[2024-07-24] MEDS: FUROSEMIDE 40 MG/4 ML VIAL IV ONE (03:52)
[2024-07-24 03:57] LABS: INR 1.36 (0.9-1.15); Partial Thromboplastin Time 30.5 SEC (24.5-34.5); Prothrombin Time 14.1 sec (9.3-11.8)
[2024-07-24] MEDS ORDERED: DOCUSATE SOD 100 MG CAP PO PRN (04:45)
[2024-07-24 06:16] VITALS: O2SAT 97
[2024-07-24] MEDS: chlordiazePOXIDE HCL 5 MG CAP PO PRN (06:39)
[2024-07-24 08:29] VITALS: PULSE 111; RESP 17; O2SAT 96
[2024-07-24 08:55] LABS: Basophils # (auto) 0 10 ^3/uL (0-0.2); Eosinophils # (auto) 0 10 ^3/uL (0-0.8); Lymphocytes # (auto) 0.4 10 ^3/uL (0.4-5.4); Mean Corpuscular Hemoglobin 37.1 pg (28.0-32.0); Monocytes # (auto) 0.1 10 ^3/uL (0-1.3); Neutrophils # (auto) 3.3 10 ^3/uL (1.6-8.6); Nucleated Red Blood Cells % 0.1 %; Red Cell Distribution Width 13.7 % (11.8-14.3); White Blood Cell 3.8 10^3/uL (4.4-10.8)
[2024-07-24 08:59] LABS: Basophils % (auto) 0.2 % (0.0-2.0); Eosinophils % (auto) 0.1 % (0.0-7.0); Hematocrit 43.8 % (41.0-53.0); Hemoglobin 15.6 g/dL (13.5-17.5); Lymphocytes % (auto) 11.6 % (10.0-50.0); Mean Corpuscular Hgb Conc. 35.5 g/dL (32.0-36.0); Mean Corpuscular Volume 104.5 fL (80.0-100.0); Neutrophils % (auto) 86.1 % (37.0-80.0); Platelet Count (auto) 130 10^3/uL (140-450); Red Blood Cells 4.19 10^6/uL (4.5-5.90)
[2024-07-24] MEDS: ASPirin 81 mg TAB PO SCH (10:00)
[2024-07-24] MEDS: EMPAGLIFLOZIN 10 MG TAB PO SCH (10:03)
[2024-07-24] MEDS: FUROSEMIDE 40 MG/4 ML VIAL IV SCH (10:03)
[2024-07-24] MEDS: CARVEDILOL 3.125 MG TAB PO SCH ×2 (10:04→22:06)
[2024-07-24 10:51] LABS: Alanine Aminotransferase 54 U/L (7-40); Alkaline Phosphatase 53 U/L (46-116); Anion Gap 8 (5-15); BUN/Creatinine Ratio 10.3 (10.0-20.0); Blood Urea Nitrogen 11 mg/dL (9-23); Calcium 9.7 mg/dL (8.7-10.4); Carbon Dioxide 19 mmol/L (20-30); Chloride 113 mmol/L (98-107); Glucose 157 mg/dL (74-106); Potassium 3.9 mmol/L (3.5-5.1); Sodium 140 mmol/L (136-145)
[2024-07-24 10:52] LABS: Aspartate Aminotransferase 62 U/L (13-40); Bilirubin, Total 1.1 mg/dL (0.2-1.0); Total Protein 8.6 g/dL (5.7-8.2)
[2024-07-24] MEDS: LEVALBUTEROL HCL 1.25 MG/3 ML NEB NEB SCH (11:59)
[2024-07-24 12:00] VITALS: O2SAT 96
[2024-07-24] MEDS: ENOXAPARIN SOD 100 MG/1 ML SYRINGE SC SCH (15:04)
[2024-07-24 15:53] LABS: COVID19 ANTIGEN SOFIA FIA NEGATIVE (NEGATIVE); Rapid Influenza A Negative (Negative); Rapid Influenza B Negative (Negative)
[2024-07-24] MEDS: IPRATROPIUM BROM 0.5 MG/2.5ML INH SOL NEB PRN (19:10)
[2024-07-24] MEDS: ATORVASTATIN 20 MG TAB PO SCH (22:07)
[2024-07-24] MEDS: SACUBITRIL-VALSARTAN 24mg/26mg TAB PO SCH (22:07)
[2024-07-25 06:00] VITALS: PULSE 135; RESP 20; O2SAT 95
[2024-07-25 06:06] LABS: Basophils # (auto) 0 10 ^3/uL (0-0.2); Eosinophils # (auto) 0 10 ^3/uL (0-0.8); Nucleated Red Blood Cells % 0.1 %
[2024-07-25 06:09] LABS: Basophils % (auto) 0.1 % (0.0-2.0); Hematocrit 43.8 % (41.0-53.0); Hemoglobin 15.4 g/dL (13.5-17.5); Lymphocytes # (auto) 0.8 10 ^3/uL (0.4-5.4); Lymphocytes % (auto) 6.2 % (10.0-50.0); Mean Corpuscular Hemoglobin 36.6 pg (28.0-32.0); Mean Corpuscular Hgb Conc. 35.3 g/dL (32.0-36.0); Mean Corpuscular Volume 103.9 fL (80.0-100.0); Monocytes % (auto) 7.9 % (0.0-12.0); Neutrophils # (auto) 11.4 10 ^3/uL (1.6-8.6); Neutrophils % (auto) 85.8 % (37.0-80.0); Platelet Count (auto) 115 10^3/uL (140-450); Red Blood Cells 4.22 10^6/uL (4.5-5.90); Red Cell Distribution Width 13.4 % (11.8-14.3); White Blood Cell 13.2 10^3/uL (4.4-10.8)
[2024-07-25 06:14] VITALS: PULSE 130; RESP 18; O2SAT 98
[2024-07-25 06:16] LABS: Anion Gap 8 (5-15); Carbon Dioxide 27 mmol/L (20-30); Chloride 105 mmol/L (98-107); Potassium 3.2 mmol/L (3.5-5.1); Sodium 140 mmol/L (136-145)
[2024-07-25 06:17] LABS: Calcium 9.7 mg/dL (8.7-10.4)
[2024-07-25 06:22] LABS: BUN/Creatinine Ratio 18.4 (10.0-20.0); Blood Urea Nitrogen 18 mg/dL (9-23); Glucose 129 mg/dL (74-106)
[2024-07-25 08:00] VITALS: PULSE 105; RESP 16; O2SAT 94
[2024-07-25] MEDS: POTASSIUM EFFERVESENT TAB 25 MEQ PO ONE (09:59)
[2024-07-25] MEDS ORDERED: predniSONE 20 MG TAB PO SCH (10:00)
[2024-07-25] MEDS: CARVEDILOL 12.5 MG TAB PO SCH (10:01)
[2024-07-25] MEDS ORDERED: CARV-216 PO (10:49)
[2024-07-25] MEDS ORDERED: ATOR20TA50 PO (10:49)
[2024-07-25 11:20] VITALS: BP 109/82; PULSE 96; RESP 18; TEMP 97.9; O2SAT 96
[2024-07-25 14:55] VITALS: O2SAT 96
[2024-07-25 15:08] VITALS: BP 112/88; PULSE 102; RESP 17; TEMP 97.8; O2SAT 96
[2024-07-25] MEDS ORDERED: APIX5TAB PO (15:53)
[2024-07-25] MEDS ORDERED: FURO40TA4 PO (15:53)
== END 2024-07-25 16:40 | disposition home or self-care (01) | DRG 280 ==
LOC: ER 21:54 → TELE 07-24 03:19 → TELE-E-ADS 07-25 11:01
PROVIDERS: ADMIT Internal Medicine; ATTEND Internal Medicine
DX: I11.0 Hypertensive heart disease with heart failure (principal); I50.23 Acute on chronic systolic (congestive) heart failure; I21.A1 Myocardial infarction type 2; J96.21 Acute and chronic respiratory failure with hypoxia; D68.69 Other thrombophilia; I48.91 Unspecified atrial fibrillation; F17.210 Nicotine dependence, cigarettes, uncomplicated; E87.6 Hypokalemia; F15.10 Other stimulant abuse, uncomplicated; J44.89 Other specified chronic obstructive pulmonary disease; F10.10 Alcohol abuse, uncomplicated; Z79.899 Other long term (current) drug therapy; Z91.199 Patient's noncompliance with other medical treatment and regimen due to unspecified reason; Y90.9 Presence of alcohol in blood, level not specified
CPT/HCPCS: 36415; 71045; 80048; 80053; 80307; 81001; 82306; 82607; 83036; 83880; 84443; 84484; 85025; 85610; 85730; 87426; 87804; 93005; 93306; 94640; 96365; 96372; 96375; 99291; G0378; J1956

== ENCOUNTER 2025-01-17 18:09 | Inpatient (IN) | payer OTHER, MEDICAID ==
[~2025-01-17] VITALS: Ht 175.3 cm; Wt 85.7 kg
[~2025-01-17 18:09] MED LIST changes: +APIX5TAB PO; -APIX5TAB4 PO; +ATOR20TA50 PO; -CARV-214 PO; +CARV-216 PO; -FURO20TA4 PO; +FURO40TA4 PO; -IBUP-1456 PO
--- NOTE | 2025-01-17 18:29 | ED.PDOC ---
History of Present Illness HPI Comments HPI: Poor Historian. 69-year-old male presents to emergency department for alcohol withdrawal. Most recent alcoholic intake was approximately hour prior to arrival. Patient has four day history of associated nausea and vomiting nonbilious nonbloody and diarrhea that is brown in color. Denies any abdominal pain. Denies any bleeding. Today patient had 4 beers of 211. Past Medical History: CHF, hypertension, hyperlipidemia, COPD Past Surgical History: Denies any REVIEW OF SYSTEMS: CONSTITUTIONAL: Denies acute: fever, diaphoresis, chills, generalized weakness. HEAD: Denies acute: headache, photophobia Eyes: Denies acute: Double vision, vision loss, eye pain, eye discharge. EARS: Denies acute: tinnitus, hearing loss, ear discharge, ear pain, THROAT: Denies acute: sore throat, swelling, difficulty swallowing , pain with swallowing, change in voice. NECK: Denies acute: neck pain, neck swelling, stiff neck. HEART: Denies acute : chest pain, palpitations, LUNGS: Denies acute: SOB, wheezing, cough, hemoptysis ABDOMEN: Denies acute: abdominal pain, , melena , hematemesis, hematochezia SKIN: Denies acute: rash, redness, lesions, itchiness. EXTREMITIES: Denies acute: calf pain, numbness, tingling, weakness, denies pain in extremity. Denies acute: Low back pain. Neuro: Denies acute: focal neurological deficit, motor or sensory focal neurological deficit, tremors, seizure like activity, confusion, dizziness, change in mental status, loss of bowel or bladder function, cauda equina like symptoms. : Denies acute: dysuria, hematuria, flank pain, increase in urinary frequency. PSYCH: Denies acute: hallucination, suicidal ideation, homicidal ideation. PHYSICAL EXAM: General: no acute distress, awake and alert. Head: normocephalic, atraumatic. Neck: supple, trachea is midline, no swelling. Throat: Normal phonation. Eyes:, no erythema, no purulent discharge, no proptosis, no icterus. Heart: regular rate, regular rhythm, no significant murmur appreciated. Lungs: no apparent respiratory distress, Able to speak in full sentences. No wheezing, no rhonchi, no crackles. No stridors Clear to auscultation bilaterally. Abdomen: non tender to palpation, non distended, soft, no guarding, no rebound, + bowel sounds. Obese Neuro: Awake, Alert, oriented to name, self, situation, follows commands GCS=15. Speech is normal. Skin: no petechia, no purpura, no cyanosis, non-pale, not jaundice. Lower extremities: --trace bilateral - Pitting edema no deformity, no focal swelling, no calf TTP. Makes eye contact. moves all four extremities. Face: no apparent facial droop. Ambulating in the ED independently. ED COURSE: Chief Complaint: ETOH Time Seen by MD: 18:16 Primary Care Provider: UNKNOWN Reviewed Notes: Nurses Notes, Allergies Allergies: Coded Allergies: Cephalexin (Verified Allergy, Mild, RASH, 02/10/15) Home Meds Active Scripts Carvedilol (COREG) 12.5 Mg Tab, 12.5 MG PO Q12HR for 30 Days, #60 TAB 3 Refills Prov:EFRAÍN TALBERT DO 07/25/24 Atorvastatin Calcium (ATORVASTATIN CALCIUM) 20 Mg Tab, 80 MG PO HS for 30 Days, #120 TAB 3 Refills Prov:EFRAÍN TALBERT DO 07/25/24 Empagliflozin (Jardiance) 10 Mg Tab, 10 MG PO DAILY for 90 Days, #90 TAB 3 Refills Prov:SANTANA WEINBERG RESIDENT 04/05/24 Aspirin (Aspirin Low Dose) 81 Mg Tab, 81 MG PO DAILY for 90 Days, #90 TAB Prov:SANTANA WEINBERG RESIDENT 04/05/24 Sacubitril-Valsartan (Entresto 24-26 mg) 1 Tab Tab, 1 TAB PO BID for 15 Days, #3 0 TAB Prov:EVA MCFADDEN 03/23/24 Reported Medications Furosemide (Furosemide) 40 Mg Tab, 40 MG PO DAILY 07/25/24 Apixaban Base (ELIQUIS) 5 Mg Tab, 5 MG PO BID 07/25/24 Albuterol Sulfate (Albuterol Sulfate Hfa) 108 Mcg/Act Aer, 1 PUFF INH TID 04/04/24 Information Source: Patient Mode of Arrival: Ambulatory Past Medical History PAST MEDICAL HISTORY: Arthritis, CHF, COPD, HTN, [place] Surgical History: Hernia Repair Family History Family History: No family hx of Heart eitan, No family hx of HTN Social History Smoker: Greater Than 1 Pack/Day Alcohol: Occasionally Drugs: Marijuana, Methamphetamine, Other Lives In: Home Was a procedure done? Was a procedure done?: No Differential Dx Considerations may include: Electrolyte abnormality, sepsis, withdrawal, intoxication, X-Ray, Labs, Meds, VS Vital Signs Date Time Temp Pulse Resp B/P (MAP) Pulse Ox O2 Delivery O2 Flow Rate FiO2 01/17/25 20:43 62 96 Room Air* 0 21 01/17/25 20:30 97.6 87 16 121/50 (73) 96 97.6 01/17/25 20:26 121/50 01/17/25 20:21 91 01/17/25 18:21 98.4 67 20 106/84 (91) 95 98.4 Lab Test 01/17/25 21:30 01/17/25 21:13 01/17/25 20:40 01/17/25 20:00 Range/Units Troponin I High Sensitivity Pending Pending Lactic Acid Level Pending Urine Color Pending Urine Clarity Pending Urine pH Pending Urine Specific [place] Pending Urine Protein Pending Urine Ketones Pending Urine Blood Pending Urine Nitrite Pending Urine Bilirubin Pending Urine Urobilinogen Pending Urine Leukocyte Esterase Pending Urine RBC Pending Urine Microscopic WBC Pending Urine Squamous Epithelial Cells Pending Urine Bacteria Pending Urine Glucose Pending Test 01/17/25 19:13 Range/Units White Blood Count 6.0 4.4-10.8 10^3/uL Red Blood Count 5.04 4.5-5.90 10^6/uL Hemoglobin 15.4 13.5-17.5 g/dL Hematocrit 46.4 41.0-53.0 % Mean Corpuscular Volume 92.1 80.0-100.0 fL Mean Corpuscular Hemoglobin 30.5 28.0-32.0 pg Mean Corpuscular Hemoglobin Concent 33.1 32.0-36.0 g/dL Red Cell Distribution Width 16.6 H 11.8-14.3 % Platelet Count 172 140-450 10^3/uL Mean Platelet Volume 7.7 6.9-10.8 fL Neutrophils (%) (Auto) 55.5 37.0-80.0 % Lymphocytes (%) (Auto) 26.1 10.0-50.0 % Monocytes (%) (Auto) 13.8 H 0.0-12.0 % Eosinophils (%) (Auto) 4.0 0.0-7.0 % Basophils (%) (Auto) 0.6 0.0-2.0 % Neutrophils # (Auto) 3.4 1.6-8.6 10 ^3/uL Lymphocytes # (Auto) 1.6 0.4-5.4 10 ^3/uL Monocytes # (Auto) 0.8 0-1.3 10 ^3/uL Eosinophils # (Auto) 0.2 0-0.8 10 ^3/uL Basophils # (Auto) 0 0-0.2 10 ^3/uL Nucleated Red Blood Cells 0.1 % Sodium Level 140 136-145 mmol/L Potassium Level 4.1 3.5-5.1 mmol/L Chloride Level 106 98-107 mmol/L Carbon Dioxide Level 22 20-31 mmol/L Anion Gap 12 5-15 Blood Urea Nitrogen 11 9-23 mg/dL Creatinine 1.18 0.700-1.30 mg/dL Glomerular Filtration Rate Calc 67 >90 mL/min BUN/Creatinine Ratio 9.3 L 10.0-20.0 Serum Glucose 113 H 74-106 mg/dL Lactic Acid Level 3.1 *H 0.4-2.0 mmol/L Calcium Level 9.2 8.7-10.4 mg/dL Magnesium Level 1.7 1.6-2.6 mg/dL Total Bilirubin 0.8 0.2-1.0 mg/dL Aspartate Amino Transferase (AST) 68 H 13-40 U/L Alanine Aminotransferase (ALT) 50 H 7-40 U/L Alkaline Phosphatase 57 46-116 U/L Troponin I High Sensitivity 345 *H </=54 ng/L B-Type Natriuretic Peptide 914.34 0-100 pg/mL Total Protein 7.9 5.7-8.2 g/dL Albumin 3.9 3.2-4.8 g/dL Lipase 52 12-53 U/L Plasma/Serum Blood Alcohol 262.1 H <10 mg/dL Current Medications Medications (Trade) Dose Ordered Sig/Carleen Route Start Time Stop Time Status Last Admin Sodium Chloride 1,000 ml @ 1,000 mls/hr Q1H ONCE IV 01/17/25 18:30 01/17/25 19:29 DC 01/17/25 20:30 Thiamine HCl 100 mg ONCE ONCE PO 01/17/25 18:30 01/17/25 18:31 DC 01/17/25 20:27 Ondansetron HCl (Zofran) 8 mg ONCE ONCE IV 01/17/25 18:30 01/17/25 18:31 DC 01/17/25 20:27 Lorazepam (Ativan Inj) 1 mg ONCE ONCE IV 01/17/25 19:30 01/17/25 19:31 DC 01/17/25 20:22 Furosemide (Lasix Injection) 40 mg ONCE ONCE IV 01/17/25 20:00 01/17/25 20:08 DC 01/17/25 20:26 Aspirin (Ecotrin Enteric Coated Tablet) 325 mg ONCE ONCE PO 01/17/25 20:00 01/17/25 20:08 DC 01/17/25 20:26 [place] [address] Ph: [phone] DIAGNOSTIC IMAGING Diagnostic Imaging Report : [id number] Signed PATIENT: GIAN MCINTYRE ACCT: [id number] UNIT: [id number] : 1955 LOC: ER ROOM / BED: / AGE / SEX: 69 / M ADM STATUS: REG ER SERVICE 26 ORDERING PHYSICIAN: ETE PETERSEN DO PROCEDURE(s): ABPL - CT AB PEL WO CON-NO ORAL OR IV REASON: ETOH, nausea vomiting diarrhea ORDER NUMBER(s): [id number], ACCESSION NUMBER(s): [id number] Exam: CT CT AB PEL WO CON-NO ORAL OR IV History: ETOH, nausea vomiting diarrhea Comparison Study: None available at time of dictation. TECHNIQUE: Multidetector CT of the abdomen was performed from lung bases to pubic symphysis. Imaging was performed without IV contrast. Axial, coronal and sagittal multiplanar reformats were obtained from the axial data set by the technologist. Radiation Dose Information: CT Dose: CTDI volume is 11.23 mGy. Dose-length product is 592.64 mGy*cm FINDINGS: Evaluation of solid organs is limited due to lack of intravenous contrast use. Findings: Lung Bases: No acute or significant lung base finding. Normal heart size. No pleural or pericardial effusion. Liver: The liver is normal in size. No focal lesions. Gallbladder and Biliary Tree: Unremarkable Spleen: Unremarkable Pancreas: The pancreas is grossly normal in appearance. Adrenal Glands: Unremarkable Kidneys: Kidneys are grossly normal without calculi or hydronephrosis. Bladder: Grossly unremarkable for degree of distention. Bowel: The stomach is grossly normal in appearance. Small bowel and colon are normal in caliber and distribution. The appendix is not visualized; however, no secondary findings of acute appendicitis identified. Ascites: Absent Lymphadenopathy: No mesenteric, retroperitoneal or periportal lymphadenopathy. Abdominal Wall and Mesentery: Unremarkable. Vasculature: The visualized abdominal aorta is normal in size and caliber. Evaluation of abdominal and pelvic vessels is limited due to lack of intravenous contrast. Pelvic Organs: Unremarkable Musculoskeletal: No aggressive focal bony lesions, acute fractures or dislocation. Soft tissues: Unremarkable IMPRESSION: 1. No findings to suggest bowel obstruction. 2. Gallbladder is of normal size with no calcified gallstones. 3. Pancreas appears normal. 4. There is no free air or free fluid. 5. Sigmoid diverticulosis with no free fluid or free air. 6. Bony spondylosis and degenerative disc changes throughout the lumbar spine. Possible small anterior spondylolisthesis L L4-5. Radiation optimization: All CT scans at this facility use at least one of these dose optimization techniques: automated exposure control mA and/or kV adjustment per patient size (includes targeted exams where dose is matched to clinical indication) or iterative reconstruction. ATED BY: EJ SU Jr., DO DICTATED DATE/TIME: 01/17/251948 SIGNED BY: EJ SU Jr., DO SIGNED DATE/TIME: 01/17/251948 CC: [place] [address] Ph: [phone] DIAGNOSTIC IMAGING Diagnostic Imaging Report : [id number] Signed PATIENT: GIAN MCINTYRE ACCT: [id number] UNIT: [id number] : 1955 LOC: ER ROOM / BED: / AGE / SEX: 69 / M ADM STATUS: REG ER SERVICE 26 ORDERING PHYSICIAN: TEE PETERSEN DO PROCEDURE(s): CXRP - CHEST PORTABLE REASON: ETOH, nausea vomiting diarrhea ORDER NUMBER(s): [id number], ACCESSION NUMBER(s): [id number] CHEST RADIOGRAPH Indication: ETOH, nausea vomiting diarrhea Technique: Single frontal view of the chest was obtained COMPARISON: XY CHEST PORTABLE on DOS: 07/23/24, XY CHEST PORTABLE on DOS: 04/03/24 FINDINGS: Lines and Tubes: None Lungs: Clear Pleura: No effusion. No pneumothorax. Cardiomediastinal contours: Unremarkable Bones: Unremarkable IMPRESSION: No abnormality demonstrated. ATED BY: PARVEZ JENNINGS MD DICTATED DATE/TIME: 01/17/251954 SIGNED BY: PARVEZ JENNINGS MD SIGNED DATE/TIME: 01/17/251954 CC: Time of 1ST Reevaluation: 20:53 Reevaluation 1ST: Improved Patient Education/Counseling: Diagnosis, Treatment Family Education/Counseling: Other Comments Patient presented with the above HPI.--alcohol withdrawal----workup was initiated. patient was found with the above mentioned diagnosis. the following medications were ordered: please refer to order lists of meds and tests obtained by myself Dr. Petersen. Patient ED course and VS have been stabilized. Patient has been reassessed in the ED and remained in a stable condition. Pertinent incidental findings were discussed with the patient and/or family. Patient/family voices understanding and is agreeable with plan. Patient has been observed in the ED adequate length of time to insure improvement/stability. Escalation of care considered: Consideration of escalation to observation or admission Patient was found with elevated troponin but denies any chest pain. Cardiac workup was initiated as well. Patient was given aspirin. Patient was ADMITTED to the medicine team for further evaluation and treatment of their presentation. But was not to be found for awhile because he went to the cafeteria which delayed some of his laboratory results. All the reports of any imaging studies that were ordered by myself were reviewed by myself. Departure 1 Departure Time of Disposition: 19:31 Impression: Primary Impression: Alcohol withdrawal Additional Impressions: Alcohol abuse Elevated troponin I level Elevated lactic acid level Elevated brain natriuretic peptide (BNP) level Disposition: ADMITTED INPATIENT Admit to: Tele Condition: Guarded Discharged With: Self Critical Care Note Critical Care Time?: Yes (45 min-critical care time only) Heart Score Heart Score: Heart Score Response (Comments) Value History Slightly Suspicious 0 EKG Normal 0 Age >65 2 Risk Factors >3 or Hx ASHD 2 Troponin >3 x's Normal limit 2 Total 6 I personally scribed for TEE PETERSEN DO ([email or web address]) on 01/17/25 at 18:29. Electr onically submitted by Beatris Priest ([email or web address]). I personally scribed for TEE PETERSEN DO ([email or web address]) on 01/17/25 at 21:38. El ectronically submitted by Beatris Priest ([email or web address]). TEE PETERSEN DO Jan 17, 2025 18:29
[2025-01-17 19:23] LABS: Basophils # (auto) 0 10 ^3/uL (0-0.2); Basophils % (auto) 0.6 % (0.0-2.0); Eosinophils # (auto) 0.2 10 ^3/uL (0-0.8); Hematocrit 46.4 % (41.0-53.0); Hemoglobin 15.4 g/dL (13.5-17.5); Lymphocytes # (auto) 1.6 10 ^3/uL (0.4-5.4); Lymphocytes % (auto) 26.1 % (10.0-50.0); Mean Corpuscular Hemoglobin 30.5 pg (28.0-32.0); Mean Corpuscular Hgb Conc. 33.1 g/dL (32.0-36.0); Mean Corpuscular Volume 92.1 fL (80.0-100.0); Monocytes # (auto) 0.8 10 ^3/uL (0-1.3); Monocytes % (auto) 13.8 % (0.0-12.0); Neutrophils # (auto) 3.4 10 ^3/uL (1.6-8.6); Neutrophils % (auto) 55.5 % (37.0-80.0); Nucleated Red Blood Cells % 0.1 %; Platelet Count (auto) 172 10^3/uL (140-450); Red Blood Cells 5.04 10^6/uL (4.5-5.90); Red Cell Distribution Width 16.6 % (11.8-14.3)
[2025-01-17 19:40] LABS: Albumin 3.9 g/dL (3.2-4.8); Alkaline Phosphatase 57 U/L (46-116); Anion Gap 12 (5-15); BUN/Creatinine Ratio 9.3 (10.0-20.0); Blood Urea Nitrogen 11 mg/dL (9-23); Calcium 9.2 mg/dL (8.7-10.4); Carbon Dioxide 22 mmol/L (20-31); Chloride 106 mmol/L (98-107); Lipase 52 U/L (12-53); Magnesium 1.7 mg/dL (1.6-2.6); Potassium 4.1 mmol/L (3.5-5.1); Sodium 140 mmol/L (136-145); Total Protein 7.9 g/dL (5.7-8.2)
[2025-01-17 19:41] LABS: Bilirubin, Total 0.8 mg/dL (0.2-1.0)
--- NOTE | 2025-01-17 19:52 | DVH ---
Exam: CT CT AB PEL WO CON-NO ORAL OR IV History: ETOH, nausea vomiting diarrhea Comparison Study: None available at time of dictation. TECHNIQUE: Multidetector CT of the abdomen was performed from lung bases to pubic symphysis. Imaging was performed without IV contrast. Axial, coronal and sagittal multiplanar reformats were obtained fr om the axial data set by the technologist. Radiation Dose Information: CT Dose: CTDI volume is 11.23 mGy. Dose-length product is 592.64 mGy*cm FINDINGS: Evaluation of solid organs is limited due to lack of intravenous contrast use. Findings: Lung Bases: No acute or significant lung base finding. Normal heart size. No pleural or pericardial effusion. Liver: The liver is normal in size. No focal lesions. Gallbladder and Biliary Tree: Unremarkable Spleen: Unremarkable Pancreas: The pancreas is grossly normal in appearance. Adrenal Glands: Unremarkable Kidneys: Kidneys are grossly normal without calculi or hydronephrosis. Bladder: Grossly unremarkable for degree of distention. Bowel: The stomach is grossly normal in appearance. Small bowel and colon are normal in caliber and d istribution. The appendix is not visualized; however, no secondary findings of acute appendicitis id entified. Ascites: Absent Lymphadenopathy: No mesenteric, retroperitoneal or periportal lymphadenopathy. Abdominal Wall and Mesentery: Unremarkable. Vasculature: The visualized abdominal aorta is normal in size and caliber. Evaluation of abdominal a nd pelvic vessels is limited due to lack of intravenous contrast. Pelvic Organs: Unremarkable Musculoskeletal: No aggressive focal bony lesions, acute fractures or dislocation. Soft tissues: Unremarkable IMPRESSION: 1. No findings to suggest bowel obstruction. 2. Gallbladder is of normal size with no calcified gallstones. 3. Pancreas appears normal. 4. There is no free air or free fluid. 5. Sigmoid diverticulosis with no free fluid or free air. 6. Bony spondylosis and degenerative disc changes throughout the lumbar spine. Possible small anterio r spondylolisthesis L L4-5. Radiation optimization: All CT scans at this facility use at least one of these dose optimization te chniques: automated exposure control mA and/or kV adjustment per patient size (includes targeted exa ms where dose is matched to clinical indication) or iterative reconstruction.
[2025-01-17 19:53] LABS: Alanine Aminotransferase 50 U/L (7-40); Aspartate Aminotransferase 68 U/L (13-40); Glucose 113 mg/dL (74-106)
[2025-01-17 19:57] LABS: Lactic Acid w/Reflex 3.1 mmol/L (0.4-2.0)
--- NOTE | 2025-01-17 19:58 | DVH ---
CHEST RADIOGRAPH Indication: ETOH, nausea vomiting diarrhea Technique: Single frontal view of the chest was obtained COMPARISON: XY CHEST PORTABLE on DOS: 07/23/24, XY CHEST PORTABLE on DOS: 04/03/24 FINDINGS: Lines and Tubes: None Lungs: Clear Pleura: No effusion. No pneumothorax. Cardiomediastinal contours: Unremarkable Bones: Unremarkable IMPRESSION: No abnormality demonstrated.
[2025-01-17] MEDS: LORazepam 2MG/ML-1ML VIAL IV ONE (20:22)
[2025-01-17] MEDS: FUROSEMIDE 40 MG/4 ML VIAL IV ONE (20:26)
[2025-01-17] MEDS: ASPirin-EC 325mg tab PO ONE (20:26)
[2025-01-17] MEDS: ONDANSETRON HCL 4 MG/2 ML VIAL IV ONE (20:27)
[2025-01-17] MEDS: THIAMINE HCL 100 MG TAB PO ONE (20:27)
[2025-01-17] MEDS: SODIUM CHLORIDE 0.9% 1,000 ML IV ONE (20:30)
[2025-01-17 20:43] VITALS: PULSE 62; O2SAT 96
[2025-01-17] MEDS ORDERED: DOCUSATE SOD 100 MG CAP PO PRN (21:30)
[2025-01-17] MEDS ORDERED: ACETAMINOPHEN 325 MG TAB PO PRN (21:30)
[2025-01-17 21:32] LABS: Urine Bacteria None Seen /hpf (None Seen)
[2025-01-17 21:57] LABS: Urine Blood Negative /uL (Negative); Urine Clarity Clear (Clear); Urine Color Colorless (Yellow); Urine Protein, UAD Negative (Negative); Urine Specific Gravity 1.005 (1.001-1.035); Urine Squamous Epithelial Cell None Seen /hpf (<5); Urine Urobilinogen Normal (Negative)
[2025-01-17 21:59] LABS: Urine WBC < 1 /HPF (0-3)
[2025-01-17] MEDS: CARVEDILOL 3.125 MG TAB PO SCH (22:00)
[2025-01-17] MEDS: SODIUM CHLOR 0.9% PF (SALINE LOCK) 10ML VIAL/SYR IV SCH (22:08)
[2025-01-17 22:33] VITALS: PULSE 98; RESP 14; O2SAT 83
--- NOTE | 2025-01-17 22:33 | DVHHP2 ---
History of Present Illness Reason for Visit: Alcohol withdrawal History of Present Illness The patient is a 69-year-old male with past medical history of CHF, COPD, arthritis, AK, hypertension, and hyperlipidemia who presented to [facility] for evaluation of alcohol withdrawal. Patient reports has been experiencing diarrhea, nausea, vomiting nonbloody, nonbilious emesis for the past 4 days. Admits alcohol intake approximately hour prior to arrival. Patient was seen and evaluated in the ED, laboratory data shows WBC 6.0, platelets 172, sodium 140, potassium 4.1, BUN 11, creatinine 1.18, GFR 67, glucose 113, lactic acid 3.1 trending down to 2.5, AST 68, ALT 50, lipase 52, BNP 914.34, troponin 345 tren ding down to 302, serum alcohol 262, blood pressure 86/60 trending up to 107/80, heart rate 102, temperature 97.6 F, O2 saturation 96% on room air. Patient was started on IV Lasix, given midodrine 10 mg x1, please see medication orders section in the computer. On my assessment, patient denies chest pain, no headache, no dizziness, no diaphoresis, no shortness of breaths, no nausea or vomiting at this moment, no fever, no chills. Patient was admitted for further evaluation and medical management. Past Medical History Arthritis, CHF, COPD, HTN, AK, HLD.. Past Surgical History Hernia Repair Family History Reviewed, noncontributory to the management of this case. Past Social History The patient lives at home, smokes cigarettes greater than 1 pack per day, drinks alcohol occasionally, uses marijuana and methamphetamine. Review of Systems Constitutional: Yes: Weakness; No: Fever, Chills, Sweats, Malaise, Other Eyes: No: Pain, Vision change, Conjunctivae inflammation, Eyelid inflammation, Other, Redness ENT: No: Ear pain, Ear discharge, Nose pain, Nose discharge, Nose congestion, Mouth pain, Mouth swelling, Throat pain, Throat swelling, Other Respiratory: No: Cough, Dry, Shortness of breath, SOB with excertion, Wheezing, Hemoptysis, Pleuritic Pain, Sputum, Wheezing, Other Cardiovascular: No: Chest Pain, Palpitations, Orthopnea, Paroxysmal Noc. Dyspnea, Edema, Lt Headedness, Other Gastrointestinal: Nausea, Vomiting; No: Abdominal Pain, Diarrhea, Constipation, Melena, Hematochezia, Other Genitourinary: No Dysuria, No Frequency, No Incontinence, No Hematuria, No Retention, No Other Musculoskeletal: No: other, neck pain, shoulder pain, arm pain, back pain, hand pain, leg pain, foot pain Skin: No: Rash, Lesions, Jaundice, Bruising, Other Neurological: No: Weakness, Numbness, Incoordination, Change in speech, Confusion, Seizures, Other Allergies: Coded Allergies: Cephalexin (Verified Allergy, Mild, RASH, 02/10/15) Medications Current Medications Medications Dose Ordered Sig/Carleen Route Start Time Stop Time Status Last Admin Dose Admin Thiamine HCl 100 mg DAILY IV 01/18/25 10:00 Folic Acid 1 mg/ Dextrose 50.2 ml @ 200.8 mls/ hr DAILY INJ 01/18/25 10:00 Furosemide 40 mg DAILY IV 01/18/25 10:00 Carvedilol 3.125 mg Q12HR PO 01/17/25 22:00 Apixaban 5 mg BID PO 01/17/25 22:00 Sodium Chloride 10 ml Q8HR IV 01/17/25 22:00 01/17/25 22:08 10 ML Acetaminophen/ Hydrocodone Bitart 1 tab Q4HP PRN PO 01/17/25 21:30 Ondansetron HCl 4 mg Q4HP PRN IV 01/17/25 21:30 Docusate Sodium 100 mg BIDPRN PRN PO 01/17/25 21:30 Multivitamins 1 tab DAILY PO 01/18/25 10:00 Ibuprofen 600 mg Q6HP PRN PO 01/17/25 22:15 UNV Exam Vital Signs Vital Signs Date Time Temp Pulse Resp B/P (MAP) Pulse Ox O2 Delivery O2 Flow Rate FiO2 01/17/25 22:00 52 87/42 01/17/25 20:43 96 Room Air* 0 21 01/17/25 20:30 97.6 16 97.6 General Appearance: Alert, Oriented X3, Cooperative, No acute distress HEENT: Atraumatic, PERRLA, EOMI, Mucous membr. moist/pink Respiratory: Clear to auscultation, Normal air movement Cardiovascular: Normal S1, Normal S2, No murmurs, Other (Irregular rate.) Abdominal: Normal bowel sounds, Soft, No tenderness, No hepatospenomegaly, No masses Extremities: No clubbing, No cyanosis, No edema, Normal pulses, No tenderness/swelling Skin: No rashes, No breakdown, No significant lesion Neuro: Normal speech, Normal tone, Sensation intact, Cranial nerves 3-12 NL, Reflexes 2+, Other (Generalized weakness) Psych/Mental Status: Mental status NL, Mood NL Labs/Xrays Labs Test 01/17/25 21:30 01/17/25 21:13 01/17/25 20:00 01/17/25 19:13 Range/Units Troponin I High Sensitivity 302 *H </=54 ng/L Lactic Acid Level 2.5 *H 0.4-2.0 mmol/L Urine Color Colorless Yellow Urine Clarity Clear Clear Urine pH 5.0 5.0-9.0 Urine Specific [place] 1.005 1.001-1.035 Urine Protein Negative Negative Urine Ketones Negative Negative Urine Blood Negative Negative /uL Urine Nitrite Negative Negative Urine Bilirubin Negative Negative Urine Urobilinogen Normal Negative mg/dL Urine Leukocyte Esterase Negative Negative /uL Urine RBC <1 0 - 3 /hpf Urine Microscopic WBC < 1 0-3 /HPF Urine Squamous Epithelial Cells None seen <5 /hpf Urine Bacteria None seen None Seen /hpf Urine Glucose 1+ H Normal mg/dL White Blood Count 6.0 4.4-10.8 10^3/uL Red Blood Count 5.04 4.5-5.90 10^6/uL Hemoglobin 15.4 13.5-17.5 g/dL Hematocrit 46.4 41.0-53.0 % Mean Corpuscular Volume 92.1 80.0-100.0 fL Mean Corpuscular Hemoglobin 30.5 28.0-32.0 pg Mean Corpuscular Hemoglobin Concent 33.1 32.0-36.0 g/dL Red Cell Distribution Width 16.6 H 11.8-14.3 % Platelet Count 172 140-450 10^3/uL Mean Platelet Volume 7.7 6.9-10.8 fL Neutrophils (%) (Auto) 55.5 37.0-80.0 % Lymphocytes (%) (Auto) 26.1 10.0-50.0 % Monocytes (%) (Auto) 13.8 H 0.0-12.0 % Eosinophils (%) (Auto) 4.0 0.0-7.0 % Basophils (%) (Auto) 0.6 0.0-2.0 % Neutrophils # (Auto) 3.4 1.6-8.6 10 ^3/uL Lymphocytes # (Auto) 1.6 0.4-5.4 10 ^3/uL Monocytes # (Auto) 0.8 0-1.3 10 ^3/uL Eosinophils # (Auto) 0.2 0-0.8 10 ^3/uL Basophils # (Auto) 0 0-0.2 10 ^3/uL Nucleated Red Blood Cells 0.1 % Sodium Level 140 136-145 mmol/L Potassium Level 4.1 3.5-5.1 mmol/L Chloride Level 106 98-107 mmol/L Carbon Dioxide Level 22 20-31 mmol/L Anion Gap 12 5-15 Blood Urea Nitrogen 11 9-23 mg/dL Creatinine 1.18 0.700-1.30 mg/dL Glomerular Filtration Rate Calc 67 >90 mL/min BUN/Creatinine Ratio 9.3 L 10.0-20.0 Serum Glucose 113 H 74-106 mg/dL Calcium Level 9.2 8.7-10.4 mg/dL Magnesium Level 1.7 1.6-2.6 mg/dL Total Bilirubin 0.8 0.2-1.0 mg/dL Aspartate Amino Transferase (AST) 68 H 13-40 U/L Alanine Aminotransferase (ALT) 50 H 7-40 U/L Alkaline Phosphatase 57 46-116 U/L B-Type Natriuretic Peptide 914.34 0-100 pg/mL Total Protein 7.9 5.7-8.2 g/dL Albumin 3.9 3.2-4.8 g/dL Lipase 52 12-53 U/L Plasma/Serum Blood Alcohol 262.1 H <10 mg/dL PATIENT: GIAN MCINTYRE ACCT: [id number] UNIT: [id number] : 1955 LOC: ER ROOM / BED: / AGE / SEX: 69 / M ADM STATUS: REG ER SERVICE 26 ORDERING PHYSICIAN: TEE PETERSEN DO PROCEDURE(s): ABPL - CT AB PEL WO CON-NO ORAL OR IV REASON: ETOH, nausea vomiting diarrhea ORDER NUMBER(s): [id number], ACCESSION NUMBER(s): [id number] Exam: CT CT AB PEL WO CON-NO ORAL OR IV History: ETOH, nausea vomiting diarrhea Comparison Study: None available at time of dictation. TECHNIQUE: Multidetector CT of the abdomen was performed from lung bases to pubic symphysis. Imaging was performed without IV contrast. Axial, coronal and sagittal multiplanar reformats were obtained from the axial data set by the technologist. Radiation Dose Information: CT Dose: CTDI volume is 11.23 mGy. Dose-length product is 592.64 mGy*cm FINDINGS: Evaluation of solid organs is limited due to lack of intravenous contrast use. Findings: Lung Bases: No acute or significant lung base finding. Normal heart size. No pleural or pericardial effusion. Liver: The liver is normal in size. No focal lesions. Gallbladder and Biliary Tree: Unremarkable Spleen: Unremarkable Pancreas: The pancreas is grossly normal in appearance. Adrenal Glands: Unremarkable Kidneys: Kidneys are grossly normal without calculi or hydronephrosis. Bladder: Grossly unremarkable for degree of distention. Bowel: The stomach is grossly normal in appearance. Small bowel and colon are normal in caliber and distribution. The appendix is not visualized; however, no secondary findings of acute appendicitis identified. Ascites: Absent Lymphadenopathy: No mesenteric, retroperitoneal or periportal lymphadenopathy. Abdominal Wall and Mesentery: Unremarkable. Vasculature: The visualized abdominal aorta is normal in size and caliber. E valuation of abdominal and pelvic vessels is limited due to lack of intravenous contrast. Pelvic Organs: Unremarkable Musculoskeletal: No aggressive focal bony lesions, acute fractures or dislocation. Soft tissues: Unremarkable IMPRESSION: 1. No findings to suggest bowel obstruction. 2. Gallbladder is of normal size with no calcified gallstones. 3. Pancreas appears normal. 4. There is no free air or free fluid. 5. Sigmoid diverticulosis with no free fluid or free air. 6. Bony spondylosis and degenerative disc changes throughout the lumbar spine. Possible small anterior spondylolisthesis L L4-5. ORDERING PHYSICIAN: TEE PETERSEN DO PROCEDURE(s): CXRP - CHEST PORTABLE REASON: ETOH, nausea vomiting diarrhea ORDER NUMBER(s): [id number], ACCESSION NUMBER(s): [id number] CHEST RADIOGRAPH Indication: ETOH, nausea vomiting diarrhea Technique: Single frontal view of the chest was obtained COMPARISON: XY CHEST PORTABLE on DOS: 07/23/24, XY CHEST PORTABLE on DOS: 04/03/24 FINDINGS: Lines and Tubes: None Lungs: Clear Pleura: No effusion. No pneumothorax. Cardiomediastinal contours: Unremarkable Bones: Unremarkable IMPRESSION: No abnormality demonstrated. Assessment/Plan Assessment/Plan Alcohol withdrawal Alcohol abuse Elevated liver enzymes Elevated troponin I level Elevated lactic acid level Acute exacerbation of congestive heart failure Plan 1. Admit to telemetry unit 2. Breathing treatment 3. Pain control management 4. Management of fluids and electrolytes 5. Consultation for cardiology 6. Diagnostic tests chest x-ray 7. DVT prophylaxis-on Eliquis 8. Repeat labs CBC, CMP in a.m. 9. Continue with current medical management 10. Treatment plan discussed with patient and RN. Patient verbalized understanding. Plan discussed with: Patient, Other (RN) My Orders Orders - ILYA PETTY DNP Procedure Category Date Status Time Thiamine Inj PHA 01/18/25 In Process 10:00 Folic Acid PHA 01/18/25 In Process 10:00 Furosemide Injection PHA 01/18/25 In Process (Lasix Injection) 10:00 Carvedilol Tablet PHA 01/17/25 In Process (Coreg Tablet) 22:00 Apixaban (Eliquis) PHA 01/17/25 In Process 22:00 Allergies TOMA 01/17/25 In Process 21:30 Code Status CODE 01/17/25 Transmitted 21:30 Sodium Chloride Lock PHA 01/17/25 In Process (Saline Lock Ns) 22:00 Oxygen Per Hour RT 01/17/25 Transmitted 21:30 Hydrocodone-Acet PHA 01/17/25 In Process 5/325mg Tab (Orgas 21:30 Ondansetron Hcl PHA 01/17/25 In Process (Zofran) 21:30 Docusate Sodium PHA 01/17/25 In Process Capsule (Colace 21:30 Multiple Vitamin PHA 01/18/25 In Process Tablet (Mvi Tab) 10:00 Fall Risk Precautions TOMA 01/17/[address] 21:30 Complete Blood Count LAB 01/18/25 Verified 04:00 Comprehensive LAB 01/18/25 Verified Metabolic Panel 04:00 Cardiac DIET 01/18/25 Transmitted Diet-2gna,Lofat,Lochol Breakfast Condition: Serious TOMA 01/17/25 In Process 21:30 Sequential TOMA 01/17/25 In Process Compression Device Ibuprofen Tablet PHA 01/17/25 Logged (Motrin Tablet) 22:15 Problem List: (1) Alcohol withdrawal (2) Alcohol abuse (3) Elevated liver enzymes (4) Elevated lactic acid level (5) Elevated troponin I level (6) Acute exacerbation of congestive heart failure Date of Service: Jan 17, 2025 Billing Provider: ILYA PETTY DNP Common Visit Codes: [id number] INP/OBS CARE (HIGH) ILYA PETTY DNP Jan 17, 2025 22:33
[2025-01-17] MEDS ORDERED: MORPHINE SULFATE INJ 2 MG/ml SYRG IV PRN (22:45)
[2025-01-17] MEDS ORDERED: NITROGLYCERIN 0.4 MG SL TAB SL PRN (22:45)
[2025-01-17] MEDS: FOLIC ACID 1 MG in D5W 5% 50 ML INJ ONE (22:46)
[2025-01-17] MEDS: APIXABAN 5 MG TAB PO SCH (23:03)
[2025-01-17] MEDS: MIDODRINE HCL 10 MG TAB PO SCH (23:47)
[2025-01-18 02:44] VITALS: PULSE 86; RESP 16
[2025-01-18 04:41] LABS: Hematocrit 40.8 % (41.0-53.0); Mean Corpuscular Hemoglobin 31.2 pg (28.0-32.0); Mean Corpuscular Hgb Conc. 34.4 g/dL (32.0-36.0); Mean Corpuscular Volume 90.9 fL (80.0-100.0); Platelet Count (auto) 128 10^3/uL (140-450); Red Blood Cells 4.49 10^6/uL (4.5-5.90); Red Cell Distribution Width 16.5 % (11.8-14.3); White Blood Cell 4.9 10^3/uL (4.4-10.8)
[2025-01-18] MEDS: LORazepam 2MG/ML-1ML VIAL IV PRN (04:41)
[2025-01-18 04:48] LABS: Basophils % (manual) 0 (0.0-2.0); Blast Cells 0; Metamyelocytes % 0; Myelocytes % 0; Promyelocytes % 0
[2025-01-18 04:50] LABS: Albumin 3.5 g/dL (3.2-4.8); Alkaline Phosphatase 49 U/L (46-116); Anion Gap 10 (5-15); BUN/Creatinine Ratio 9.8 (10.0-20.0); Bilirubin, Total 0.6 mg/dL (0.2-1.0); Blood Urea Nitrogen 11 mg/dL (9-23); Carbon Dioxide 22 mmol/L (20-31); Glucose 93 mg/dL (74-106); Potassium 3.8 mmol/L (3.5-5.1); Sodium 141 mmol/L (136-145); Total Protein 7.1 g/dL (5.7-8.2)
[2025-01-18 04:59] LABS: Alanine Aminotransferase 42 U/L (7-40); Aspartate Aminotransferase 56 U/L (13-40); Calcium 8.6 mg/dL (8.7-10.4); Chloride 109 mmol/L (98-107)
[2025-01-18 06:03] LABS: Band Neutrophils % (manual) 2; Eosinophils % (manual) 4 (0-7); Lymphocytes % (manual) 23 (10.0-50.0); Monocytes % (manual) 10 (0-12); Reactive Lymphocytes 1
[2025-01-18 06:04] LABS: Platelet Estimate Decreased
[2025-01-18 07:30] VITALS: PULSE 97; RESP 12; O2SAT 97
[2025-01-18 08:51] LABS: Magnesium 1.6 mg/dL (1.6-2.6)
[2025-01-18 08:59] LABS: Cannabinoid Screen, Urine Pos (NEGATIVE)
--- NOTE | 2025-01-18 09:05 | DVHINCON2 ---
Date Seen: Jan 18, 2025 Referring Physician JUDI Phan Reason for Consultation Elevated troponin, hypotension, CHF History of Present Illness This is a 69-year-old male patient who presents to the emergency room with chief complaint of nausea, vomiting, and diarrhea. Patient states he came to the emergency room because he wants help "to stop drinking". Cardiology has been consulted at this point for elevated troponin levels, history of CHF, and hypotension. Initial twelve lead electrocardiogram reveals atrial fibrillation with PVCs. Initial troponin level of 345ng/L with down trend thereafter. Initial BNP level of 914.34pg/mL. Significant past medical history includes congestive heart failure, atrial fibrillation (on Eliquis), COPD, polysubstance abuse, tobacco use, and alcohol abuse. The patient states that he has been compliant with all of his heart failure medications. The patient reports he sees a recreational vehicle repairer in the outpatient setting, but can not remember the recreational vehicle repairer's name. Of note, the patient had a coronary angiogram with left heart catheterization on 10/11/2022 which revealed mild coronary artery disease in which no catheter based intervention was warranted at that time. Past Medical History Past medical history reviewed. No other significant than mentioned above. Past Surgical History Hernia repair Family History: Chronic obstructive pulmonary disease G8 FATHER Diabetes mellitus G8 MOTHER FH: cirrhosis G8 MOTHER Family history: Cardiovascular disease Family history: Hypertension Family History Family history reviewed. Social History Patient admits to daily alcohol intake, approximately four beers per day Patient has history of methamphetamine use Patient has a 20 pack-year history Allergies: Coded Allergies: Cephalexin (Verified Allergy, Mild, RASH, 02/10/15) Home Meds Active Scripts Carvedilol (COREG) 12.5 Mg Tab, 12.5 MG PO Q12HR for 30 Days, #60 TAB 3 Refills Prov:TALBERTEFRAÍN Champion T DO 07/25/24 Atorvastatin Calcium (ATORVASTATIN CALCIUM) 20 Mg Tab, 80 MG PO HS for 30 Days, #120 TAB 3 Refills Prov:EFRAÍN TALBERT DO 07/25/24 Empagliflozin (Jardiance) 10 Mg Tab, 10 MG PO DAILY for 90 Days, #90 TAB 3 Refills Prov:SANTANA WEINBERG RESIDENT 04/05/24 Aspirin (Aspirin Low Dose) 81 Mg Tab, 81 MG PO DAILY for 90 Days, #90 TAB Prov:SANTANA WEINBERG RESIDENT 04/05/24 Sacubitril-Valsartan (Entresto 24-26 mg) 1 Tab Tab, 1 TAB PO BID for 15 Days, #30 TAB Prov:LESAEVA SARAVIA 03/23/24 Reported Medications Furosemide (Furosemide) 40 Mg Tab, 40 MG PO DAILY 07/25/24 Apixaban Base (ELIQUIS) 5 Mg Tab, 5 MG PO BID 07/25/24 Albuterol Sulfate (Albuterol Sulfate Hfa) 108 Mcg/Act Aer, 1 PUFF INH TID 04/04/24 Home Meds Home medications reviewed. Current Medications Current Medications Medications (Trade) Dose Ordered Sig/Carleen Route PRN Reason Start Time Stop Time Status Last Admin Thiamine HCl 100 mg DAILY IV 01/18/25 10:00 Folic Acid 1 mg/ Dextrose 50.2 ml @ 200.8 mls/ hr DAILY INJ 01/18/25 10:00 Furosemide (Lasix Injection) 40 mg DAILY IV 01/18/25 10:00 Carvedilol (Coreg Tablet) 3.125 mg Q12HR PO 01/17/25 22:00 Apixaban (Eliquis) 5 mg BID PO 01/17/25 22:00 01/17/25 23:03 Sodium Chloride (Saline Lock Ns) 10 ml Q8HR IV 01/17/25 22:00 01/18/25 06:08 Acetaminophen/ Hydrocodone Bitart ([place]on 5/325MG Tab) 1 tab Q4HP PRN PO MODERATE PAIN (4-6 PAIN SCALE) 01/17/25 21:30 Ondansetron HCl (Zofran) 4 mg Q4HP PRN IV NAUSEA / VOMITING 01/17/25 21:30 Docusate Sodium (Colace Capsule) 100 mg BIDPRN PRN PO FOR CONSTIPATION 01/17/25 21:30 Multivitamins (Mvi Tab) 1 tab DAILY PO 01/18/25 10:00 Acetaminophen (Tylenol Tablet) 650 mg Q6HP PRN PO PAIN SCALE 1-3 OR TEMP>100.4 01/17/25 21:30 01/17/25 22:05 DC Ibuprofen (Motrin Tablet) 600 mg Q6HP PRN PO MILD PAIN (1-3 PAIN SCALE) 01/17/25 22:15 Nitroglycerin (Ntrostat Sublingual) 0.4 mg Q5MINP PRN SL FOR CHEST PAIN 01/17/25 22:45 Morphine Sulfate 2 mg Q30M PRN IV FOR CHEST PAIN 01/17/25 22:45 Midodrine (Proamatine Tablet) 10 mg TID PO 01/17/25 11:39 01/18/25 06:10 Lorazepam (Ativan Inj) 1 mg Q8HP PRN IV ANXIETY 01/18/25 01:30 01/18/25 04:41 Review of Systems Constitutional: No symptom reported Ears, Nose, & Throat: No symptom reported Eyes: No symptom reported Neurological: No symptoms reported Pulmonary/Respiratory: No symptoms reported Cardiovascular: No symptom reported Gastrointestinal: Nausea, vomiting, diarrhea Genitourinary: No symptom reported Musculoskeletal: No symptom reported Skin: No symptom reported Psychiatric: No symptom reported Endocrine: No symptom reported Hematologic/Lymphatic: No symptom reported Vital Signs Vital Signs Date Time Temp Pulse Resp B/P (MAP) Pulse Ox O2 Delivery O2 Flow Rate FiO2 01/18/25 06:00 105 14 107/80 (89) 98 01/18/25 02:44 Nasal Cannula* 2 28 01/17/25 22:33 98.5 98.5 Physical Exam General Appearance: Cooperative. Well-developed. Well-nourished. No acute distress. Pulmonary/Respiratory: Clear, bilateral breaths sounds. Cardiovascular/Chest: Irregular rate and rhythm. Peripheral Pulses: 2+ Radial (R). 2+ Radial (L). 2+ Pedal (R). 2+ Pedal (L) Abdominal Exam: Normal bowel sounds. Ankle Exam: Negative ankle edema Lower extremities: Negative lower extremity edema Neuro/Mental Status: A/OX3, coherent. Thoughts/Psych: Normal thought pattern. Appropriate mood and affect. Good judgment and insight. Appearance: No acute distress. Skin Exam: Normal inspection. Normal color. Warm and dry. Labs/Diagnostic Data Labs Test 01/18/25 07:25 01/18/25 04:21 01/17/25 23:36 01/17/25 20:00 Range/Units Lactic Acid Level 1.2 0.4-2.0 mmol/L White Blood Count 4.9 4.4-10.8 10^3/uL Red Blood Count 4.49 L 4.5-5.90 10^6/uL Hemoglobin 14.0 13.5-17.5 g/dL Hematocrit 40.8 #L 41.0-53.0 % Mean Corpuscular Volume 90.9 80.0-100.0 fL Mean Corpuscular Hemoglobin 31.2 28.0-32.0 pg Mean Corpuscular Hemoglobin Concent 34.4 32.0-36.0 g/dL Red Cell Distribution Width 16.5 H 11.8-14.3 % Platelet Count 128 L 140-450 10^3/uL Mean Platelet Volume 7.9 6.9-10.8 fL Neutrophils (%) (Auto) 37.0-80.0 % Lymphocytes (%) (Auto) 10.0-50.0 % Monocytes (%) (Auto) 0.0-12.0 % Basophils (%) (Auto) 0.0-2.0 % Neutrophils # (Auto) 1.6-8.6 10 ^3/uL Lymphocytes # (Auto) 0.4-5.4 10 ^3/uL Monocytes # (Auto) 0-1.3 10 ^3/uL Differential Total Cells Counted 100.0 100 Neutrophils % (Manual) 60 37.0-80.0 Band Neutrophils % (Manual) 2 Lymphocytes % (Manual) 23 10.0-50.0 Monocytes % (Manual) 10 0-12 Eosinophils % (Manual) 4 0-7 Basophils % (Manual) 0 0.0-2.0 Metamyelocytes % (manual) 0 Myelocytes % (Manual) 0 Promyelocytes % (Manual) 0 Blast Cells % (Manual) 0 Reactive Lymphocytes 1 Platelet Estimate Decreased Sodium Level 141 136-145 mmol/L Potassium Level 3.8 3.5-5.1 mmol/L Chloride Level 109 H 98-107 mmol/L Carbon Dioxide Level 22 20-31 mmol/L Anion Gap 10 5-15 Blood Urea Nitrogen 11 9-23 mg/dL Creatinine 1.12 0.700-1.30 mg/dL Glomerular Filtration Rate Calc 72 >90 mL/min BUN/Creatinine Ratio 9.8 L 10.0-20.0 Serum Glucose 93 74-106 mg/dL Calcium Level 8.6 L 8.7-10.4 mg/dL Magnesium Level 1.6 1.6-2.6 mg/dL Total Bilirubin 0.6 0.2-1.0 mg/dL Aspartate Amino Transferase (AST) 56 H 13-40 U/L Alanine Aminotransferase (ALT) 42 H 7-40 U/L Alkaline Phosphatase 49 46-116 U/L Total Protein 7.1 5.7-8.2 g/dL Albumin 3.5 3.2-4.8 g/dL Triglycerides Level 86 < 150 mg/dL Cholesterol Level 132 < 200 mg/dL LDL Cholesterol 76 < 100 mg/dL HDL Cholesterol 51 40-59 mg/dL Troponin I High Sensitivity 316 *H </=54 ng/L Urine Color Colorless Yellow Urine Clarity Clear Clear Urine pH 5.0 5.0-9.0 Urine Specific [place] 1.005 1.001-1.035 Urine Protein Negative Negative Urine Ketones Negative Negative Urine Blood Negative Negative /uL Urine Nitrite Negative Negative Urine Bilirubin Negative Negative Urine Urobilinogen Normal Negative mg/dL Urine Leukocyte Esterase Negative Negative /uL Urine RBC <1 0 - 3 /hpf Urine Microscopic WBC < 1 0-3 /HPF Urine Squamous Epithelial Cells None seen <5 /hpf Urine Bacteria None seen None Seen /hpf Urine Glucose 1+ H Normal mg/dL Test 01/17/25 19:13 Range/Units Eosinophils (%) (Auto) 4.0 0.0-7.0 % Eosinophils # (Auto) 0.2 0-0.8 10 ^3/uL Basophils # (Auto) 0 0-0.2 10 ^3/uL Nucleated Red Blood Cells 0.1 % B-Type Natriuretic Peptide 914.34 0-100 pg/mL Lipase 52 12-53 U/L Plasma/Serum Blood Alcohol 262.1 H <10 mg/dL Assessment NSTEMI, likely type II Acute on chronic decompensated HFrEF, NYHA class III Atrial fibrillation, likely persistent (on Eliquis) History of mild coronary artery disease COPD Transaminitis History methamphetamine use Alcohol abuse Plan/Recommendation We will continue with the following plan/recommendations (Dr. Koch): * Transthoracic echocardiogram to evaluate cardiac function * Previous echocardiogram from 07/24/2024 reveals an EF of 20% * Initiate guideline directed medical therapy for CHF as blood pressure permits * Strict intake and output, daily weights, maintain fluid restriction * Diuresis as tolerated * [id number] VASc score: 3 points, HAS-BLED: 2 points * continue NOAC, Eliquis * Beta-flower with stable BP * Avoid antiarrhythmic agents given unknown duration of AFib * Discontinue midodrine as this is contraindicated for reduced ejection fraction Thank you for allowing us to care for this patient. Please call with any questions or concerns. Critical care time spent: 40 minutes This medical document was created using an electronic medical record system with voice recognition software and computerized dictation system. Although this document has been carefully reviewed, there might still be some phonetic and typographical errors. Occasional wrong-word or ``sound-alike substitutions may have occurred due to the inherent limitations of voice recognition software. These areas are purely typographical due to imperfections of the software programs and do not reflect any compromise in the patient's medical care. Please read the chart carefully and recognize, using context, where these substitutions have occurred. Plan discussed with: Patient NYHA Physical activity limitations: Class3(Marked) ordinary (activity causes symtoms) Date of Service: Jan 18, 2025 Billing Provider: MASOOD LUCAS Cardiology Common Codes: 77731-UABMKQS INP/OBS CARE (High) Cardiology Consultation Codes: [id number] CONSULT <45MIN MASOOD LUCAS Jan 18, 2025 09:05
[2025-01-18 09:06] LABS: Amphetamine Screen, Urine Neg (NEGATIVE); Barbiturate Scree,Urine Neg (NEGATIVE); Benzodiazephine Screen, Urine Neg (NEGATIVE); Cocaine Screen, Urine Neg (NEGATIVE); Opiate Scree,Urine Neg (NEGATIVE); Phencyclidine Screen, Urine Neg (NEGATIVE)
[2025-01-18] MEDS: MAGNESIUM SULFATE 1GM/100ML 100 ML IV ONE (11:24)
[2025-01-18] MEDS: MULTIPLE VITAMIN TAB PO SCH (11:24)
[2025-01-18] MEDS: THIAMINE 100mg/ml INJ (200mg/2ml VIAL) IV SCH (11:25)
[2025-01-18] MEDS: FUROSEMIDE 40 MG/4 ML VIAL IV SCH (11:28)
[2025-01-18] MEDS: FOLIC ACID 1 MG in D5W 5% 50 ML INJ SCH (11:30)
--- NOTE | 2025-01-18 12:21 | ECG ---
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
--- NOTE | 2025-01-18 12:36 | DVHPN2 ---
Reviewed: Care Plan, H&P, Labs, Medications, Previous Orders, Radiology Changes from previous H/P or p: No Changes Eyes: No Pain, No Vision change, No Conjunctivae inflammation, No Eyelid inflammation, No Other, No Redness ENT: No Ear pain, No Ear discharge, No Nose pain, No Nose discharge, No Nose congestion, No Mouth pain, No Mouth swelling, No Throat pain, No Throat swelling, No Other Cardiovascular: No Chest Pain, No Palpitations, No Orthopnea, No Paroxysmal Noc. Dyspnea, No Edema, No Lt Headedness, No Other Respiratory: No Cough, No Dry, No Shortness of breath, No SOB with excertion, No Wheezing, No Hemoptysis, No Pleuritic Pain, No Sputum, No Other Gastrointestinal: Nausea, Vomiting; No Abdominal Pain, No Diarrhea, No Constipation, No Melena, No Hematochezia, No Other Genitourinary: No Dysuria, No Frequency, No Incontinence, No Hematuria, No Retention, No Other Musculoskeletal: No other, No neck pain, No shoulder pain, No arm pain, No back pain, No hand pain, No leg pain, No foot pain Skin: No Rash, No Lesions, No Jaundice, No Bruising, No Other Objective Vitals Vital Signs Date Time Temp Pulse Resp B/P (MAP) Pulse Ox O2 Delivery O2 Flow Rate FiO2 01/18/25 11:28 116/74 01/18/25 08:00 93 01/18/25 07:30 12 97 Room Air* 0 21 01/18/25 07:30 98.1 98.1 Intake/Output Intake and Output 01/18/25 07:00 Intake Total 1050.2 ml Output Total 1000 ml Balance 50.2 ml Intake IV Total 1050.2 ml Output Urine Total 1000 ml Medications Current Medications Medications Dose Ordered Sig/Carleen Route Start Time Stop Time Status Last Admin Dose Admin Thiamine HCl 100 mg DAILY IV 01/18/25 10:00 01/18/25 11:25 100 MG Folic Acid 1 mg/ Dextrose 50.2 ml @ 200.8 mls/ hr DAILY INJ 01/18/25 10:00 01/18/25 11:30 200.8 MLS/HR Furosemide 40 mg DAILY IV 01/18/25 10:00 01/18/25 11:28 40 MG Apixaban 5 mg BID PO 01/17/25 22:00 01/18/25 11:24 5 MG Sodium Chloride 10 ml Q8HR IV 01/17/25 22:00 01/18/25 06:08 10 ML Acetaminophen/ Hydrocodone Bitart 1 tab Q4HP PRN PO 01/17/25 21:30 Ondansetron HCl 4 mg Q4HP PRN IV 01/17/25 21:30 Docusate Sodium 100 mg BIDPRN PRN PO 01/17/25 21:30 Multivitamins 1 tab DAILY PO 01/18/25 10:00 01/18/25 11:24 1 TAB Ibuprofen 600 mg Q6HP PRN PO 01/17/25 22:15 Nitroglycerin 0.4 mg Q5MINP PRN SL 01/17/25 22:45 Morphine Sulfate 2 mg Q30M PRN IV 01/17/25 22:45 Lorazepam 1 mg Q8HP PRN IV 01/18/25 01:30 01/18/25 04:41 1 MG Metoprolol Tartrate 12.5 mg BID PO 01/18/25 22:00 Sacubitril/ Valsartan 0.5 tab BID PO 01/18/25 22:00 Laboratory Results Laboratory Tests 01/18/25 04:21 Chemistry Test 01/17/25 19:13 01/18/25 04:21 Albumin 3.9 g/dL (3.2-4.8) 3.5 g/dL (3.2-4.8) Calcium Level 9.2 mg/dL (8.7-10.4) 8.6 mg/dL (8.7-10.4) L Magnesium Level 1.7 mg/dL (1.6-2.6) 1.6 mg/dL (1.6-2.6) Total Protein 7.9 g/dL (5.7-8.2) 7.1 g/dL (5.7-8.2) Lipid panel Test 01/17/25 19:13 01/18/25 04:21 Lipase 52 U/L (12-53) Cholesterol Level 132 mg/dL (< 200) HDL Cholesterol 51 mg/dL (40-59) Triglycerides Level 86 mg/dL (< 150) Cardiac Markers Test 01/17/25 19:13 B-Type Natriuretic Peptide 914.34 pg/mL (0-100) LFT Test 01/17/25 19:13 01/18/25 04:21 Alanine Aminotransferase (ALT) 50 U/L (7-40) H 42 U/L (7-40) H Alkaline Phosphatase 57 U/L (46-116) 49 U/L (46-116) Aspartate Amino Transferase (AST) 68 U/L (13-40) H 56 U/L (13-40) H Total Bilirubin 0.8 mg/dL (0.2-1.0) 0.6 mg/dL (0.2-1.0) HgA1c, TSH Test 01/18/25 04:21 Hemoglobin A1c 5.2 % A1C (<5.7) Thyroid Stimulating Hormone (TSH) 1.69 uIU/mL (0.55-4.78) Urinalysis Test 01/17/25 20:00 Urine Color Colorless (Yellow) Urine Clarity Clear (Clear) Urine pH 5.0 (5.0-9.0) Urine Specific [place] 1.005 (1.001-1.035) Urine Protein Negative (Negative) Urine Ketones Negative (Negative) Urine Blood Negative /uL (Negative) Urine Nitrite Negative (Negative) Urine Bilirubin Negative (Negative) Urine Urobilinogen Normal mg/dL (Negative) Urine Leukocyte Esterase Negative /uL (Negative) Urine RBC <1 /hpf (0 - 3) Urine Microscopic WBC < 1 /HPF (0-3) Urine Squamous Epithelial Cells None seen /hpf (<5) Urine Bacteria None seen /hpf (None Seen) Urine Glucose 1+ mg/dL (Normal) H Labs and/or images reviewed: Labs reviewed by me, Image(s) reviewed by me Assessment/Plan Assessment/Plan NSTEMI, likely type II Acute on chronic decompensated HFrEF, NYHA class III, echo 20 % ejection fraction 07/24/2024, BNP 9 one four, cardiology consult appreciated, placed on Entresto and metoprolol Lasix Atrial fibrillation, likely persistent (on Eliquis) History of mild coronary artery disease COPD Transaminitis History methamphetamine use: Counseling Chronic current alcohol abuse blood alcohol level 262: Counseling thiamine folic acid Ativan Librium Nausea and vomiting secondary to alcohol abuse: Lipase normal Time spent 70 minutes Condition guarded Advanced care planning time 20 mts Plan discussed with: Patient Date of Service: Jan 18, 2025 Billing Provider: LUIS GOMEZ MD Common Visit Codes: [id number] CARE 30-74 MIN LUIS GOMEZ MD Jan 18, 2025 12:36
[2025-01-18 13:20] VITALS: BP 113/77; PULSE 118; RESP 20; TEMP 97.6; O2SAT 94
[2025-01-18] MEDS: chlordiazePOXIDE HCL 25 MG CAP PO SCH (14:56)
--- NOTE | 2025-01-18 15:24 | ECG ---
[facility] Test Date: 2025-01-18 Test Time: 14:25:18 Pat Name: GIAN MCINTYRE Department: Room: [facility]5T B Gender: M Promotions Director: Lorene : 1955 Requested By: LUIS GOMEZ Order Number: [id number] Reading MD: Gil Koch Measurements Intervals [place] Rate: 105 P: 0 WI: 0 QRS: 76 QRSD: 93 T: 42 QT: 357 QTc: 472 Interpretive Statements Atrial fibrillation Ventricular premature complex Borderline low voltage, extremity leads Probable anteroseptal infarct, old Electronically Signed On 01-19-2025 17:16:00 PDT by Gil Koch Please click the below link to view image of tracing.
[2025-01-18 17:00] VITALS: BP 107/70; PULSE 107; RESP 20; TEMP 98.6; O2SAT 96
[2025-01-18] MEDS: FOLIC ACID 1 MG, MULTIPLE VITAMIN 10 ML, MAGNESIUM SULF SDV 50% 8 MEQ, THIAMINE INJ 100... INJ SCH (18:05)
[2025-01-18 20:00] VITALS: PULSE 102; PULSE 99; RESP 18
[2025-01-18 21:00] VITALS: BP 102/72; PULSE 72; RESP 19; TEMP 98.2; O2SAT 97
[2025-01-18] MEDS: METOPROLOL TARTRATE 25 MG TAB PO SCH (21:56)
[2025-01-18] MEDS: SACUBITRIL-VALSARTAN 24mg/26mg TAB PO SCH (21:57)
[2025-01-19] VITALS (10 sets, daily range): BP systolic 89–108; BP diastolic 51–78; PULSE 57–160; RESP 16–20; TEMP 97.6–98.4; O2SAT 90–98
--- NOTE | 2025-01-19 03:38 | ECG ---
[facility] Test Date: 2025-01-19 Test Time: 03:12:52 Pat Name: GIAN MCINTYRE Department: Room: [facility]5T B Gender: M Cost Reduction Engineer: KENYA : 1955 Requested By: ILYA PETTY Order Number: [id number] Reading MD: Gil Koch Measurements Intervals [place] Rate: 108 P: 0 [place]: 0 QRS: 84 QRSD: 93 T: 57 QT: 367 QTc: 492 Interpretive Statements Atrial fibrillation Ventricular premature complex Borderline right axis deviation Borderline low voltage, extremity leads Anteroseptal infarct, age indeterminate Electronically Signed On 01-19-2025 17:16:14 PDT by Gil Koch Please click the below link to view image of tracing.
--- NOTE | 2025-01-19 10:54 | DVHPN2 ---
Reviewed: Care Plan, H&P, Labs, Medications, Previous Orders, Radiology Changes from previous H/P or p: No Changes Eyes: No Pain, No Vision change, No Conjunctivae inflammation, No Eyelid inflammation, No Other, No Redness ENT: No Ear pain, No Ear discharge, No Nose pain, No Nose discharge, No Nose congestion, No Mouth pain, No Mouth swelling, No Throat pain, No Throat swelling, No Other Cardiovascular: No Chest Pain, No Palpitations, No Orthopnea, No Paroxysmal Noc. Dyspnea, No Edema, No Lt Headedness, No Other Respiratory: No Cough, No Dry, No Shortness of breath, No SOB with excertion, No Wheezing, No Hemoptysis, No Pleuritic Pain, No Sputum, No Other Gastrointestinal: Nausea, Vomiting; No Abdominal Pain, No Diarrhea, No Constipation, No Melena, No Hematochezia, No Other Genitourinary: No Dysuria, No Frequency, No Incontinence, No Hematuria, No Retention, No Other Musculoskeletal: No other, No neck pain, No shoulder pain, No arm pain, No back pain, No hand pain, No leg pain, No foot pain Skin: No Rash, No Lesions, No Jaundice, No Bruising, No Other Objective Vitals Vital Signs Date Time Temp Pulse Resp B/P (MAP) Pulse Ox O2 Delivery O2 Flow Rate FiO2 01/19/25 09:34 97.8 116 18 89/51 (64) 90 97.8 01/19/25 08:09 Nasal Cannula* 2 28 Intake/Output Intake and Output 01/19/25 07:00 Intake Total 2138.4 ml Output Total 1950 ml Balance 188.4 ml Intake Oral 1100 ml IV Total 1038.4 ml Output Urine Total 1950 ml # Bowel Movements 4 Medications Current Medications Medications Dose Ordered Sig/Carleen Route Start Time Stop Time Status Last Admin Dose Admin Furosemide 40 mg DAILY IV 01/18/25 10:00 01/18/25 11:28 40 MG Apixaban 5 mg BID PO 01/17/25 22:00 01/19/25 08:48 5 MG Sodium Chloride 10 ml Q8HR IV 01/17/25 22:00 01/19/25 06:11 10 ML Acetaminophen/ Hydrocodone Bitart 1 tab Q4HP PRN PO 01/17/25 21:30 Ondansetron HCl 4 mg Q4HP PRN IV 01/17/25 21:30 Docusate Sodium 100 mg BIDPRN PRN PO 01/17/25 21:30 Multivitamins 1 tab DAILY PO 01/18/25 10:00 01/19/25 08:48 1 TAB Ibuprofen 600 mg Q6HP PRN PO 01/17/25 22:15 Nitroglycerin 0.4 mg Q5MINP PRN SL 01/17/25 22:45 Morphine Sulfate 2 mg Q30M PRN IV 01/17/25 22:45 Lorazepam 1 mg Q8HP PRN IV 01/18/25 01:30 01/18/25 13:35 1 MG Metoprolol Tartrate 12.5 mg BID PO 01/18/25 22:00 01/19/25 08:48 12.5 MG Sacubitril/ Valsartan 0.5 tab BID PO 01/18/25 22:00 01/19/25 08:49 0.5 TAB Chlordiazepoxide HCl 50 mg Q12HR PO 01/19/25 22:00 01/20/25 10:01 Chlordiazepoxide HCl 25 mg Q12HR PO 01/20/25 22:00 01/21/25 10:01 Chlordiazepoxide HCl 25 mg QAM PO 01/22/25 07:00 01/22/25 07:01 Folic Acid 1 mg/ Multivitamins 10 ml/Magnesium Sulfate 8 meq/ Thiamine HCl 100 mg/Dextrose 1,013.2 ml @ 125.001 mls/hr DAILY@1800 INJ 01/18/25 18:00 01/18/25 18:05 125.001 MLS/HR Laboratory Results Laboratory Tests 01/18/25 04:21 Urinalysis Test 01/17/25 20:00 Urine Color Colorless (Yellow) Urine Clarity Clear (Clear) Urine pH 5.0 (5.0-9.0) Urine Specific [place] 1.005 (1.001-1.035) Urine Protein Negative (Negative) Urine Ketones Negative (Negative) Urine Blood Negative /uL (Negative) Urine Nitrite Negative (Negative) Urine Bilirubin Negative (Negative) Urine Urobilinogen Normal mg/dL (Negative) Urine Leukocyte Esterase Negative /uL (Negative) Urine RBC <1 /hpf (0 - 3) Urine Microscopic WBC < 1 /HPF (0-3) Urine Squamous Epithelial Cells None seen /hpf (<5) Urine Bacteria None seen /hpf (None Seen) Urine Glucose 1+ mg/dL (Normal) H Labs and/or images reviewed: Labs reviewed by me, Image(s) reviewed by me Assessment/Plan Assessment/Plan NSTEMI, likely type II Acute on chronic decompensated HFrEF, NYHA class III, echo 20 % ejection fraction 07/24/2024, BNP 914, cardiology consult appreciated, placed on Entresto and metoprolol Lasix Atrial fibrillation, likely persistent (on Eliquis) History of mild coronary artery disease COPD Transaminitis History methamphetamine use: Counseling Chronic current alcohol abuse blood alcohol level 262: Counseling thiamine folic acid Ativan Librium Nausea and vomiting secondary to alcohol abuse: Lipase normal Time spent 50 minutes Condition guarded Advanced care planning time 20 mts Plan discussed with: Patient My Orders Orders - LUIS GOMEZ MD Procedure Category Date Status Time Communication Order ORDERS 01/18/25 Transmitted 13:15 Chlordiazepoxide Hcl PHA 01/19/25 In Process Capsule (Librium Ca 22:00 Chlordiazepoxide Hcl PHA 01/20/25 In Process Capsule (Librium Ca 22:00 Folic Acid... PHA 01/18/25 In Process 18:00 Chlordiazepoxide Hcl PHA 01/22/25 In Process Capsule (Librium Ca 07:00 Date of Service: Jan 19, 2025 Billing Provider: LUIS GOMEZ MD Common Visit Codes: [id number] INP/OBS CARE(HIGH) LUIS GOMEZ MD Jan 19, 2025 10:54
[2025-01-19] MEDS: MAGNESIUM OXIDE 400 MG TAB PO ONE (12:14)
[2025-01-19] MEDS: SODIUM CHLORIDE 0.9% 1,000 ML IV SCH (12:14)
[2025-01-19] MEDS: THIAMINE HCL 100 MG TAB PO ONE (12:15)
[2025-01-19] MEDS: FOLIC ACID 1 MG TAB PO ONE (12:15)
--- NOTE | 2025-01-19 13:01 | DVHSR ---
APPROVED REPORT EXAM: Two-dimensional and M-mode echocardiogram with Doppler and color Doppler. Blood Pressure: 107/80 mmHg INDICATION CHF exacerbation, unspecified RISK FACTORS Height: 69, Weight: 200 DIMENSIONS LVDd5.5 (3.8-5.7cm)LA (2D)4.9 (1.9-4.0cm)Aortic Root3.5 (2.0-3.7cm) LVDs5.0 (2.5-4.0cm)LA (MM) (1.9-4.0cm)Aortic Cusp Exc1.8 (1.5-2.0cm) EF (%) 20.0 (55-70%)Rt. Atrium5.9 (1.9-4.0cm)Asc. Aorta cm IVSd1.1 (0.7-1.1cm)RV (D) (1.8-2.4cm) PWd1.1 (0.7-1.1cm) Mitral Valve MitralMitral Stenosis E wave0.84m/sMV Mean GR.mmHg A wavem/sMV Peak GR.49mmHg E/A ratio0.02D MVAcm2 Aortic Valve Aortic ValveAortic Stenosis V10.67m/Kendell Mean GR.3mmHg V21.02m/Kendell Peak GR.4mmHg LVOT Diameter2.1 (1.8-2.4cm)Doppler AVA2.27cm2 Tricuspid Valve TR Velocity2.35m/s [id number] Conclusion Sinus rhythm. Biatrial enlargement. LV enlargement. RV enlargement. Mild aortic root enlargement. Valves are normal. EF of 15%. RV function diminished. Mild MR. Mild TR. Mild pulmonic insufficiency. No intracardiac masses thrombi or vegetations discernible.
[2025-01-19] MEDS: IBUPROFEN 600 MG TAB PO PRN (16:10)
--- NOTE | 2025-01-19 19:06 | DVHPN2 ---
Consult Progress Note Date Seen: Jan 19, 2025 Subjective Review of Systems: CVS:Normal, RESPIRATORY:Normal, NEURO:Normal Other Systems: Denies any cardiac symptoms Objective vital signs Vital Sign Date Time Temp Pulse Resp B/P (MAP) Pulse Ox O2 Delivery O2 Flow Rate FiO2 01/19/25 17:00 97.6 87 20 98/71 (80) 97 97.6 01/19/25 08:09 Nasal Cannula* 2 28 Total Intake and Output 01/18/25 01/18/25 01/19/25 15:00 23:00 07:00 Intake Total 150.2 ml 240 ml 1748.2 ml Output Total 1000 ml 250 ml 700 ml Balance -849.8 ml -10 ml 1048.2 ml medications Current Medications Medications Dose Ordered Sig/Carleen Route Start Time Stop Time Status Last Admin Dose Admin Furosemide 40 mg DAILY IV 01/18/25 10:00 01/19/25 12:24 40 MG Apixaban 5 mg BID PO 01/17/25 22:00 01/19/25 08:48 5 MG Sodium Chloride 10 ml Q8HR IV 01/17/25 22:00 01/19/25 14:00 10 ML Acetaminophen/ Hydrocodone Bitart 1 tab Q4HP PRN PO 01/17/25 21:30 Ondansetron HCl 4 mg Q4HP PRN IV 01/17/25 21:30 Docusate Sodium 100 mg BIDPRN PRN PO 01/17/25 21:30 Multivitamins 1 tab DAILY PO 01/18/25 10:00 01/19/25 08:48 1 TAB Ibuprofen 600 mg Q6HP PRN PO 01/17/25 22:15 01/19/25 16:10 600 MG Nitroglycerin 0.4 mg Q5MINP PRN SL 01/17/25 22:45 Morphine Sulfate 2 mg Q30M PRN IV 01/17/25 22:45 Lorazepam 1 mg Q8HP PRN IV 01/18/25 01:30 01/19/25 17:41 1 MG Metoprolol Tartrate 12.5 mg BID PO 01/18/25 22:00 01/19/25 08:48 12.5 MG Sacubitril/ Valsartan 0.5 tab BID PO 01/18/25 22:00 01/19/25 08:49 0.5 TAB Chlordiazepoxide HCl 50 mg Q12HR PO 01/19/25 22:00 01/20/25 10:01 Chlordiazepoxide HCl 25 mg Q12HR PO 01/20/25 22:00 01/21/25 10:01 Chlordiazepoxide HCl 25 mg QAM PO 01/22/25 07:00 01/22/25 07:01 Sodium Chloride 1,000 ml @ 100 mls/hr Q10H IV 01/19/25 11:00 01/19/25 12:14 100 MLS/HR Folic Acid 1 mg DAILY PO 01/20/25 10:00 Magnesium Oxide 400 mg DAILY PO 01/20/25 10:00 Thiamine HCl 100 mg DAILY PO 01/20/25 10:00 laboratory and microbiology Laboratory Tests 01/18/25 04:21 Test 01/18/25 04:21 Range/Units Serum Glucose 93 74-106 mg/dL Problem List/Assessment/Plan Problem List/Assessment/Plan Acute on chronic decompensated HFrEF, NYHA class III Atrial fibrillation, controlled rate, likely persistent (on Eliquis) Likely NSTEMI type 2 secondary to above History of mild coronary artery disease COPD Transaminitis History methamphetamine use Alcohol abuse Plan/Recommendation (Dr. Koch) * Transthoracic echocardiogram revealed EF 15%. RV function diminished * Continue guideline directed medical therapy for CHF as blood pressure permits * Strict intake and output, daily weights, maintain fluid restriction * Continue NOAC, Eliquis therapy BID * [id number] VASc score: 3 points, HAS-BLED: 2 points * Beta-flower with stable BP * Avoid antiarrhythmic agents given unknown duration of AFib * Avoid midodrine given reduced ejection fraction * Discontinue IVF given CHF with LVEF of 15% * Strongly counseled on alcohol cessation and medical compliance Follow-up with primary lpn care manager as scheduled. There is no further cardiac work-up indicated at this time. Kindly call if in need to re-consult. Thank you for allowing us to care for this patient. This medical document was created using an electronic medical record system with voice recognition software and computerized dictation system. Although this document has been carefully reviewed, there might still be some phonetic and typographical errors. Occasional wrong-word or ``sound-alike substitutions may have occurred due to the inherent limitations of voice recognition software. These areas are purely typographical due to imperfections of the software programs and do not reflect any compromise in the patient's medical care. Please read the chart carefully and recognize, using context, where these substitutions have occurred. Plan discussed with: Patient, Other Date of Service: Jan 19, 2025 Billing Provider: BRUCE CHUNG Cardiology Common Codes: [id number](High BRUCE CHUNG Jan 19, 2025 19:06
[2025-01-19] MEDS: chlordiazePOXIDE HCL 25 MG CAP PO SCH (21:34)
[2025-01-20] VITALS (9 sets, daily range): BP systolic 73–104; BP diastolic 34–75; PULSE 49–135; RESP 15–19; TEMP 97.3–98.1; O2SAT 91–98
--- NOTE | 2025-01-20 04:18 | ECG ---
[facility] Test Date: 2025-01-20 Test Time: 04:16:44 Pat Name: GIAN MCINTYRE Department: Room: [facility]5T B Gender: M Toxics Program Officer: KENYA : 1955 Requested By: RAMÓN KOCH Order Number: [id number] Reading MD: Ramón Koch Measurements Intervals [place] Rate: 96 P: 0 ME: 0 QRS: 73 QRSD: 89 T: 49 QT: 362 QTc: 458 Interpretive Statements Atrial fibrillation Ventricular premature complex Low voltage, extremity leads Electronically Signed On 01-20-2025 16:11:25 PDT by Ramón Koch Please click the below link to view image of tracing.
[2025-01-20] MEDS ORDERED: THIAMINE HCL 100 MG TAB PO SCH (10:00)
[2025-01-20] MEDS: FOLIC ACID 1 MG TAB PO SCH (10:16)
[2025-01-20] MEDS: SPIRONOLACTONE 25 MG TAB PO SCH (10:17)
[2025-01-20] MEDS: MAGNESIUM OXIDE 400 MG TAB PO SCH (10:19)
[2025-01-20] MEDS: EMPAGLIFLOZIN 10 MG TAB PO SCH (10:19)
--- NOTE | 2025-01-20 11:37 | DVHPN2 ---
Reviewed: Care Plan, H&P, Labs, Medications, Previous Orders, Radiology Changes from previous H/P or p: No Changes Eyes: No Pain, No Vision change, No Conjunctivae inflammation, No Eyelid inflammation, No Other, No Redness ENT: No Ear pain, No Ear discharge, No Nose pain, No Nose discharge, No Nose congestion, No Mouth pain, No Mouth swelling, No Throat pain, No Throat swelling, No Other Cardiovascular: No Chest Pain, No Palpitations, No Orthopnea, No Paroxysmal Noc. Dyspnea, No Edema, No Lt Headedness, No Other Respiratory: No Cough, No Dry, No Shortness of breath, No SOB with excertion, No Wheezing, No Hemoptysis, No Pleuritic Pain, No Sputum, No Other Gastrointestinal: Nausea, Vomiting; No Abdominal Pain, No Diarrhea, No Constipation, No Melena, No Hematochezia, No Other Genitourinary: No Dysuria, No Frequency, No Incontinence, No Hematuria, No Retention, No Other Musculoskeletal: No other, No neck pain, No shoulder pain, No arm pain, No back pain, No hand pain, No leg pain, No foot pain Skin: No Rash, No Lesions, No Jaundice, No Bruising, No Other Objective Vitals Vital Signs Date Time Temp Pulse Resp B/P (MAP) Pulse Ox O2 Delivery O2 Flow Rate FiO2 01/20/25 10:18 111 102/64 01/20/25 08:00 16 91 Nasal Cannula* 2 28 01/20/25 05:00 97.6 97.6 Intake/Output Intake and Output 01/20/25 07:00 Intake Total 1668 ml Output Total 750 ml Balance 918 ml Intake Oral 1268 ml IV Total 400 ml Output Urine Total 750 ml # Bowel Movements 1 Medications Current Medications Medications Dose Ordered Sig/Carleen Route Start Time Stop Time Status Last Admin Dose Admin Furosemide 40 mg DAILY IV 01/18/25 10:00 01/20/25 10:15 40 MG Apixaban 5 mg BID PO 01/17/25 22:00 01/20/25 10:18 5 MG Sodium Chloride 10 ml Q8HR IV 01/17/25 22:00 01/20/25 05:25 10 ML Acetaminophen/ Hydrocodone Bitart 1 tab Q4HP PRN PO 01/17/25 21:30 Ondansetron HCl 4 mg Q4HP PRN IV 01/17/25 21:30 Docusate Sodium 100 mg BIDPRN PRN PO 01/17/25 21:30 Multivitamins 1 tab DAILY PO 01/18/25 10:00 01/20/25 10:18 1 TAB Ibuprofen 600 mg Q6HP PRN PO 01/17/25 22:15 01/19/25 16:10 600 MG Nitroglycerin 0.4 mg Q5MINP PRN SL 01/17/25 22:45 Morphine Sulfate 2 mg Q30M PRN IV 01/17/25 22:45 Lorazepam 1 mg Q8HP PRN IV 01/18/25 01:30 01/19/25 17:41 1 MG Metoprolol Tartrate 12.5 mg BID PO 01/18/25 22:00 01/20/25 10:18 12.5 MG Sacubitril/ Valsartan 0.5 tab BID PO 01/18/25 22:00 01/20/25 10:18 0.5 TAB Chlordiazepoxide HCl 25 mg Q12HR PO 01/20/25 22:00 01/21/25 10:01 Chlordiazepoxide HCl 25 mg QAM PO 01/22/25 07:00 01/22/25 07:01 Folic Acid 1 mg DAILY PO 01/20/25 10:00 01/20/25 10:16 1 MG Magnesium Oxide 400 mg DAILY PO 01/20/25 10:00 01/20/25 10:19 400 MG Thiamine HCl 100 mg DAILY PO 01/20/25 10:00 Empaglifozin 10 mg DAILY PO 01/20/25 10:00 01/20/25 10:19 10 MG Spironolactone 12.5 mg DAILY PO 01/20/25 10:00 01/20/25 10:17 12.5 MG Laboratory Results Laboratory Tests 01/18/25 04:21 Urinalysis Test 01/17/25 20:00 Urine Color Colorless (Yellow) Urine Clarity Clear (Clear) Urine pH 5.0 (5.0-9.0) Urine Specific [place] 1.005 (1.001-1.035) Urine Protein Negative (Negative) Urine Ketones Negative (Negative) Urine Blood Negative /uL (Negative) Urine Nitrite Negative (Negative) Urine Bilirubin Negative (Negative) Urine Urobilinogen Normal mg/dL (Negative) Urine Leukocyte Esterase Negative /uL (Negative) Urine RBC <1 /hpf (0 - 3) Urine Microscopic WBC < 1 /HPF (0-3) Urine Squamous Epithelial Cells None seen /hpf (<5) Urine Bacteria None seen /hpf (None Seen) Urine Glucose 1+ mg/dL (Normal) H Labs and/or images reviewed: Labs reviewed by me, Image(s) reviewed by me Assessment/Plan Assessment/Plan NSTEMI, likely type II Acute on chronic decompensated HFrEF, NYHA class III, echo 20 % ejection fraction 07/24/2024, BNP 914, cardiology consult appreciated, placed on Entresto Aldactone metoprolol, Lasix Atrial fibrillation, likely persistent (on Eliquis) History of mild coronary artery disease COPD Transaminitis History methamphetamine use: Counseling Chronic current alcohol abuse blood alcohol level 262: Counseling thiamine folic acid Ativan Librium Nausea and vomiting secondary to alcohol abuse: Lipase normal Time spent 50 minutes Condition guarded Advanced care planning time 20 mts Plan discussed with: Patient My Orders Orders - LUIS GOMEZ MD Procedure Category Date Status Time Folic Acid Tablet PHA 01/20/25 In Process 10:00 Magnesium Oxide PHA 01/20/25 In Process Tablet (Mag-Ox Tablet) 10:00 Thiamine Tab PHA 01/20/25 In Process 10:00 Date of Service: Jan 20, 2025 Billing Provider: LUIS GOMEZ MD Common Visit Codes: [id number] INP/OBS CARE(HIGH) LUIS GOMEZ MD Jan 20, 2025 11:37
--- NOTE | 2025-01-20 13:54 | DVHPN2 ---
Consult Progress Note Subjective Other Systems: The patient remains in atrial fibrillation on site monitor. Episode of nonsustained V-tach captured on site monitor. No cardiac symptoms at time of assessment. Objective vital signs Vital Sign Date Time Temp Pulse Resp B/P (MAP) Pulse Ox O2 Delivery O2 Flow Rate FiO2 01/20/25 10:18 111 102/64 01/20/25 08:00 16 91 Nasal Cannula* 2 28 01/20/25 05:00 97.6 97.6 Total Intake and Output 01/19/25 01/19/25 01/20/25 15:00 23:00 07:00 Intake Total 1108 ml 560 ml Output Total 450 ml 300 ml Balance 658 ml 260 ml medications Current Medications Medications Dose Ordered Sig/Carleen Route Start Time Stop Time Status Last Admin Dose Admin Furosemide 40 mg DAILY IV 01/18/25 10:00 01/20/25 10:15 40 MG Apixaban 5 mg BID PO 01/17/25 22:00 01/20/25 10:18 5 MG Sodium Chloride 10 ml Q8HR IV 01/17/25 22:00 01/20/25 05:25 10 ML Acetaminophen/ Hydrocodone Bitart 1 tab Q4HP PRN PO 01/17/25 21:30 Ondansetron HCl 4 mg Q4HP PRN IV 01/17/25 21:30 Docusate Sodium 100 mg BIDPRN PRN PO 01/17/25 21:30 Multivitamins 1 tab DAILY PO 01/18/25 10:00 01/20/25 10:18 1 TAB Ibuprofen 600 mg Q6HP PRN PO 01/17/25 22:15 01/19/25 16:10 600 MG Nitroglycerin 0.4 mg Q5MINP PRN SL 01/17/25 22:45 Morphine Sulfate 2 mg Q30M PRN IV 01/17/25 22:45 Lorazepam 1 mg Q8HP PRN IV 01/18/25 01:30 01/20/25 12:43 1 MG Metoprolol Tartrate 12.5 mg BID PO 01/18/25 22:00 01/20/25 10:18 12.5 MG Sacubitril/ Valsartan 0.5 tab BID PO 01/18/25 22:00 01/20/25 10:18 0.5 TAB Chlordiazepoxide HCl 25 mg Q12HR PO 01/20/25 22:00 01/21/25 10:01 Chlordiazepoxide HCl 25 mg QAM PO 01/22/25 07:00 01/22/25 07:01 Empaglifozin 10 mg DAILY PO 01/20/25 10:00 01/20/25 10:19 10 MG Spironolactone 12.5 mg DAILY PO 01/20/25 10:00 01/20/25 10:17 12.5 MG Folic Acid 1 mg/ Multivitamins 10 ml/Magnesium Sulfate 8 meq/ Thiamine HCl 100 mg/Dextrose 1,013.2 ml @ 125.001 mls/hr DAILY@1800 INJ 01/20/25 18:00 Examination: GENERAL:Normal, LUNGS:Normal, CVS:Abnormal (Atrial fibrillation), NEURO:Normal laboratory and microbiology Laboratory Tests 01/18/25 04:21 Test 01/18/25 04:21 Range/Units Serum Glucose 93 74-106 mg/dL Problem List/Assessment/Plan Problem List/Assessment/Plan Acute on chronic decompensated HFrEF, NYHA class III Atrial fibrillation, controlled rate, likely persistent (on Eliquis) Likely NSTEMI type 2 secondary to above Nonsustained V-tach History of mild coronary artery disease COPD Transaminitis History methamphetamine use Alcohol abuse Plan/Recommendation (Dr. Koch) * Transthoracic echocardiogram revealed EF 15%. RV function diminished * Continue guideline directed medical therapy for CHF as blood pressure permits * Strict intake and output, daily weights, maintain fluid restriction * Continue NOAC, Eliquis therapy BID * [id number] VASc score: 3 points, HAS-BLED: 2 points * Beta-flower for rate control * Avoid antiarrhythmic agents given unknown duration of AFib * Avoid midodrine given reduced ejection fraction * Strongly counseled on alcohol cessation and medical compliance Follow-up with primary apprentice machinist outside as scheduled. There is no further cardiac work-up indicated at this time. Kindly call if in need to re-consult. Thank you for allowing us to care for this patient. This medical document was created using an electronic medical record system with voice recognition software and computerized dictation system. Although this document has been carefully reviewed, there might still be some phonetic and typographical errors. Occasional wrong-word or ``sound-alike substitutions may have occurred due to the inherent limitations of voice recognition software. These areas are purely typographical due to imperfections of the software programs and do not reflect any compromise in the patient's medical care. Please read the chart carefully and recognize, using context, where these substitutions have occurred. Plan discussed with: Patient Dietary Evaluation Review Recommendations by RD: Protein Supplementation Comments: 1) Initiate Ensure High protein bid 2) Encourage optimal PO intake 3) Continue vitamin supplementation 4) F/u with cardiology and pulmonology 5) Refer to outpatient RD for weight management 6) Continue to monitor I&O, labs, and skin integrity Expected Outcomes/Goals: 1) appetite and labs to improve 2) f/u in 3-5 days Date of Service: Jan 20, 2025 Billing Provider: MASOOD LUCAS Common Visit Codes: [id number] INP/OBS CARE(HIGH) MASOOD LUCAS Jan 20, 2025 13:54
[2025-01-20] MEDS: FOLIC ACID 1 MG, MULTIPLE VITAMIN 10 ML, MAGNESIUM SULF SDV 50% 8 MEQ, THIAMINE INJ 100... INJ SCH (17:34)
[2025-01-20] MEDS: ONDANSETRON HCL 4 MG/2 ML VIAL IV PRN (20:11)
[2025-01-20] MEDS: chlordiazePOXIDE HCL 25 MG CAP PO SCH (21:26)
[2025-01-20] MEDS: HYDROcodone-ACET 5/325MG TAB PO PRN (21:28)
[2025-01-21 05:00] VITALS: BP 98/69; PULSE 68; RESP 16; TEMP 97.9; O2SAT 100
[2025-01-21 08:30] VITALS: PULSE 100; PULSE 101
[2025-01-21 09:26] VITALS: BP 116/68; PULSE 100; RESP 20; TEMP 98.6; O2SAT 98
[2025-01-21 10:53] LABS: Hepatitis B Surface Antigen Negative (Negative)
[2025-01-21 10:55] LABS: Hepatitis C Antibody Reactive (Negative)
--- NOTE | 2025-01-21 11:12 | DVHPN2 ---
Reviewed: Care Plan, H&P, Labs, Medications, Previous Orders, Radiology Changes from previous H/P or p: No Changes Eyes: No Pain, No Vision change, No Conjunctivae inflammation, No Eyelid inflammation, No Other, No Redness ENT: No Ear pain, No Ear discharge, No Nose pain, No Nose discharge, No Nose congestion, No Mouth pain, No Mouth swelling, No Throat pain, No Throat swelling, No Other Cardiovascular: No Chest Pain, No Palpitations, No Orthopnea, No Paroxysmal Noc. Dyspnea, No Edema, No Lt Headedness, No Other Respiratory: No Cough, No Dry, No Shortness of breath, No SOB with excertion, No Wheezing, No Hemoptysis, No Pleuritic Pain, No Sputum, No Other Gastrointestinal: Nausea, Vomiting; No Abdominal Pain, No Diarrhea, No Constipation, No Melena, No Hematochezia, No Other Genitourinary: No Dysuria, No Frequency, No Incontinence, No Hematuria, No Retention, No Other Musculoskeletal: No other, No neck pain, No shoulder pain, No arm pain, No back pain, No hand pain, No leg pain, No foot pain Skin: No Rash, No Lesions, No Jaundice, No Bruising, No Other Objective Vitals Vital Signs Date Time Temp Pulse Resp B/P (MAP) Pulse Ox O2 Delivery O2 Flow Rate FiO2 01/21/25 09:26 98.6 100 20 116/68 (84) 98 98.6 01/20/25 20:00 Room Air* 0 21 Intake/Output Intake and Output 01/21/25 07:00 Intake Total 1342 ml Output Total 2225 ml Balance -883 ml Intake Oral 1342 ml Output Urine Total 2225 ml Medications Current Medications Medications Dose Ordered Sig/Carleen Route Start Time Stop Time Status Last Admin Dose Admin Furosemide 40 mg DAILY IV 01/18/25 10:00 01/20/25 10:15 40 MG Apixaban 5 mg BID PO 01/17/25 22:00 01/20/25 21:25 5 MG Sodium Chloride 10 ml Q8HR IV 01/17/25 22:00 01/21/25 05:23 10 ML Acetaminophen/ Hydrocodone Bitart 1 tab Q4HP PRN PO 01/17/25 21:30 01/20/25 21:28 1 TAB Ondansetron HCl 4 mg Q4HP PRN IV 01/17/25 21:30 01/20/25 20:11 4 MG Docusate Sodium 100 mg BIDPRN PRN PO 01/17/25 21:30 Multivitamins 1 tab DAILY PO 01/18/25 10:00 01/20/25 10:18 1 TAB Ibuprofen 600 mg Q6HP PRN PO 01/17/25 22:15 01/20/25 15:04 600 MG Nitroglycerin 0.4 mg Q5MINP PRN SL 01/17/25 22:45 Morphine Sulfate 2 mg Q30M PRN IV 01/17/25 22:45 Lorazepam 1 mg Q8HP PRN IV 01/18/25 01:30 01/20/25 12:43 1 MG Metoprolol Tartrate 12.5 mg BID PO 01/18/25 22:00 01/20/25 21:29 12.5 MG Sacubitril/ Valsartan 0.5 tab BID PO 01/18/25 22:00 01/20/25 21:31 0.5 TAB Chlordiazepoxide HCl 25 mg QAM PO 01/22/25 07:00 01/22/25 07:01 Empaglifozin 10 mg DAILY PO 01/20/25 10:00 01/20/25 10:19 10 MG Spironolactone 12.5 mg DAILY PO 01/20/25 10:00 01/20/25 10:17 12.5 MG Folic Acid 1 mg/ Multivitamins 10 ml/Magnesium Sulfate 8 meq/ Thiamine HCl 100 mg/Dextrose 1,013.2 ml @ 125.001 mls/hr DAILY@1800 INJ 01/20/25 18:00 Laboratory Results Laboratory Tests 01/18/25 04:21 Urinalysis Test 01/17/25 20:00 Urine Color Colorless (Yellow) Urine Clarity Clear (Clear) Urine pH 5.0 (5.0-9.0) Urine Specific [place] 1.005 (1.001-1.035) Urine Protein Negative (Negative) Urine Ketones Negative (Negative) Urine Blood Negative /uL (Negative) Urine Nitrite Negative (Negative) Urine Bilirubin Negative (Negative) Urine Urobilinogen Normal mg/dL (Negative) Urine Leukocyte Esterase Negative /uL (Negative) Urine RBC <1 /hpf (0 - 3) Urine Microscopic WBC < 1 /HPF (0-3) Urine Squamous Epithelial Cells None seen /hpf (<5) Urine Bacteria None seen /hpf (None Seen) Urine Glucose 1+ mg/dL (Normal) H Labs and/or images reviewed: Labs reviewed by me, Image(s) reviewed by me Assessment/Plan Assessment/Plan NSTEMI, likely type II Acute on chronic decompensated HFrEF, NYHA class III, echo 15 % ejection fraction 07/24/2024, BNP 914, cardiology consult appreciated, placed on Entresto Aldactone metoprolol, Lasix Atrial fibrillation, likely persistent (on Eliquis) History of mild coronary artery disease COPD Transaminitis History methamphetamine use: Counseling Chronic current alcohol abuse blood alcohol level 262: Counseling thiamine folic acid Ativan Librium Recurrent falls at home Nausea and vomiting secondary to alcohol abuse: Lipase normal Discussed with the patient's daughter and power of trademark attorney Dorota [phone] . She is requesting [facility] to [facility] for [facility] , patient has agreed. Time spent 50 minutes Condition guarded Advanced care planning time 20 mts Plan discussed with: Patient My Orders Orders - LUIS GOMEZ MD Procedure Category Date Status Time Folic Acid... PHA 01/20/25 In Process 18:00 Pt Request For Service PT 01/21/25 Logged 11:05 Covid19 Antigen [facility] 01/21/25 Logged Date of Service: Jan 21, 2025 Billing Provider: LUIS GOMEZ MD Common Visit Codes: [id number] INP/OBS CARE(HIGH) LUIS GOMEZ MD Jan 21, 2025 11:12
--- NOTE | 2025-01-21 11:24 | DVHDS2 ---
Discharge Summary Date of Admission Jan 17, 2025 at 22:31 Date of Discharge: Jan 21, 2025 Admitting Diagnosis Generalized weakness and shortness of breath Wounds: None Labs/Diagnostic Data: Laboratory Results Test 01/20/25 05:45 01/18/25 13:05 01/18/25 07:25 01/18/25 04:21 Plasma/Serum Blood Alcohol < 3.0 mg/dL (<10) Ammonia 32 umol/L (11-32) Lactic Acid Level 1.2 mmol/L (0.4-2.0) White Blood Count 4.9 10^3/uL (4.4-10.8) Red Blood Count 4.49 10^6/uL (4.5-5.90) Hemoglobin 14.0 g/dL (13.5-17.5) Hematocrit 40.8 % (41.0-53.0) Mean Corpuscular Volume 90.9 fL (80.0-100.0) Mean Corpuscular Hemoglobin 31.2 pg (28.0-32.0) Mean Corpuscular Hemoglobin Concent 34.4 g/dL (32.0-36.0) Red Cell Distribution Width 16.5 % (11.8-14.3) Platelet Count 128 10^3/uL (140-450) Mean Platelet Volume 7.9 fL (6.9-10.8) Neutrophils (%) (Auto) % (37.0-80.0) Lymphocytes (%) (Auto) % (10.0-50.0) Monocytes (%) (Auto) % (0.0-12.0) Basophils (%) (Auto) % (0.0-2.0) Neutrophils # (Auto) 10 ^3/uL (1.6-8.6) Lymphocytes # (Auto) 10 ^3/uL (0.4-5.4) Monocytes # (Auto) 10 ^3/uL (0-1.3) Differential Total Cells Counted 100.0 (100) Neutrophils % (Manual) 60 (37.0-80.0) Band Neutrophils % (Manual) 2 Lymphocytes % (Manual) 23 (10.0-50.0) Monocytes % (Manual) 10 (0-12) Eosinophils % (Manual) 4 (0-7) Basophils % (Manual) 0 (0.0-2.0) Metamyelocytes % (manual) 0 Myelocytes % (Manual) 0 Promyelocytes % (Manual) 0 Blast Cells % (Manual) 0 Reactive Lymphocytes 1 Platelet Estimate Decreased Sodium Level 141 mmol/L (136-145) Potassium Level 3.8 mmol/L (3.5-5.1) Chloride Level 109 mmol/L (98-107) Carbon Dioxide Level 22 mmol/L (20-31) Anion Gap 10 (5-15) Blood Urea Nitrogen 11 mg/dL (9-23) Creatinine 1.12 mg/dL (0.700-1.30) Glomerular Filtration Rate Calc 72 mL/min (>90) BUN/Creatinine Ratio 9.8 (10.0-20.0) Serum Glucose 93 mg/dL (74-106) Hemoglobin A1c 5.2 % A1C (<5.7) Calcium Level 8.6 mg/dL (8.7-10.4) Magnesium Level 1.6 mg/dL (1.6-2.6) Total Bilirubin 0.6 mg/dL (0.2-1.0) Aspartate Amino Transferase (AST) 56 U/L (13-40) Alanine Aminotransferase (ALT) 42 U/L (7-40) Alkaline Phosphatase 49 U/L (46-116) Total Protein 7.1 g/dL (5.7-8.2) Albumin 3.5 g/dL (3.2-4.8) Triglycerides Level 86 mg/dL (< 150) Cholesterol Level 132 mg/dL (< 200) LDL Cholesterol 76 mg/dL (< 100) HDL Cholesterol 51 mg/dL (40-59) Thyroid Stimulating Hormone (TSH) 1.69 uIU/mL (0.55-4.78) Hepatitis B Surface Antigen Negative (Negative) Hepatitis C Antibody Reactive (Negative) Test 01/17/25 23:36 01/17/25 20:00 01/17/25 19:13 Troponin I High Sensitivity 316 ng/L (</=54) Urine Color Colorless (Yellow) Urine Clarity Clear (Clear) Urine pH 5.0 (5.0-9.0) Urine Specific [place] 1.005 (1.001-1.035) Urine Protein Negative (Negative) Urine Ketones Negative (Negative) Urine Blood Negative /uL (Negative) Urine Nitrite Negative (Negative) Urine Bilirubin Negative (Negative) Urine Urobilinogen Normal mg/dL (Negative) Urine Leukocyte Esterase Negative /uL (Negative) Urine RBC <1 /hpf (0 - 3) Urine Microscopic WBC < 1 /HPF (0-3) Urine Squamous Epithelial Cells None seen /hpf (<5) Urine Bacteria None seen /hpf (None Seen) Urine Glucose 1+ mg/dL (Normal) Urine Opiates Screen Neg (NEGATIVE) Urine Fentanyl Screen Neg (NEGATIVE) Urine Barbiturates Screen Neg (NEGATIVE) Urine Phencyclidine Screen Neg (NEGATIVE) Urine Amphetamines Screen Neg (NEGATIVE) Urine Benzodiazepines Screen Neg (NEGATIVE) Urine Cocaine Screen Neg (NEGATIVE) Urine Cannabinoids Screen Pos (NEGATIVE) Eosinophils (%) (Auto) 4.0 % (0.0-7.0) Eosinophils # (Auto) 0.2 10 ^3/uL (0-0.8) Basophils # (Auto) 0 10 ^3/uL (0-0.2) Nucleated Red Blood Cells 0.1 % B-Type Natriuretic Peptide 914.34 pg/mL (0-100) Lipase 52 U/L (12-53) Other Laboratory Tests 01/18/25 04:21 Brief Hx & Hospital Course: 51-year-old male with a history of chronic alcohol abuse methamphetamine abuse brought into the ER for shortness of breaths and generalized weakness. Patient was found to be having non ST-elevation TN type 2. Patient was seen by cardiology Dr. Li ejection fraction 15 percent. Started on Entresto Aldactone metoprolol and Lasix for severe systolic congestive heart failure patient also has a AFib for which he was on Eliquis. History of mild coronary artery disease COPD and transaminitis tested positive for alcohol to 62 and also methamphetamine. Patient was counseled about quitting alcohol. Patient also has a history of multiple falls at home. Discussed with the patient's daughter and power of research attorney Dorota [phone] patient being discharged to halfway facility for rehab patient agrees with the plan Consults/Reason for consult Cardiology Dr. Koch Operations or Procedures Echocardiogram CT abdomen pelvis without contrast Condition at Discharge: Fair Final Diagnosis/Problems List NSTEMI, likely type II Acute on chronic decompensated HFrEF, NYHA class III, echo 15 % ejection fraction 07/24/2024, BNP 914, cardiology consult appreciated, placed on Entresto Aldactone metoprolol, Lasix Atrial fibrillation, likely persistent (on Eliquis) History of mild coronary artery disease COPD Transaminitis History methamphetamine use: Counseling Chronic current alcohol abuse blood alcohol level 262: Counseling thiamine folic acid Ativan Librium Recurrent falls at home Nausea and vomiting secondary to alcohol abuse: Lipase normal Discharge Disposition: [facility] Discharge Instruct/Medications Diet: Cardiac 2g Na,low cholest Activity: Light activity Follow Up/Referral: [facility] Medications: see list 35 (Time taken for discharge summary 35 minutes) Discharge Statement: "Patient was advised to return to the ER or call 911 if any headaches, dizziness, shortness of breath, chest pain, abdominal pain, bleeding, fevers, or worsening of medical condition. Patient was counseled about treatment plan, medications, possible side effects, patientverbalized understanding. All questions were answered to the best of my ability. This discharge took greater then 30 minutes in planning, reviewing documentation, counseling the patient, and discussing with other team members." ASSESSMENT ASSESSMENT Hospital Course Improved Assessment NSTEMI, likely type II Acute on chronic decompensated HFrEF, NYHA class III, echo 15 % ejection fraction 07/24/2024, BNP 914, cardiology consult appreciated, placed on Entresto Aldactone metoprolol, Lasix Atrial fibrillation, likely persistent (on Eliquis) History of mild coronary artery disease COPD Transaminitis History methamphetamine use: Counseling Chronic current alcohol abuse blood alcohol level 262: Counseling thiamine folic acid Ativan Librium Recurrent falls at home Nausea and vomiting secondary to alcohol abuse: Lipase normal Date of Service: Jan 21, 2025 Billing Provider: LUIS GOMEZ MD Common Visit Codes: [id number] DISCH DAY >30min LUIS GOMEZ MD Jan 21, 2025 11:24
[2025-01-21 17:30] VITALS: BP 82/57; PULSE 66; RESP 18; TEMP 97.9; O2SAT 92
[2025-01-21 20:00] VITALS: RESP 18
[2025-01-22] MEDS ORDERED: chlordiazePOXIDE HCL 25 MG CAP PO SCH (07:00)
== END 2025-01-21 20:50 | DRG 280 ==
LOC: ER 18:09 → OVERFLOW 22:31 → TELE-WESTW 01-18 13:20
PROVIDERS: ADMIT Family Medicine; ATTEND Family Medicine
DX: I11.0 Hypertensive heart disease with heart failure (principal); I50.23 Acute on chronic systolic (congestive) heart failure; I21.A1 Myocardial infarction type 2; F10.139 Alcohol abuse with withdrawal, unspecified; E87.20 Acidosis, unspecified; I47.20 Ventricular tachycardia, unspecified; I48.19 Other persistent atrial fibrillation; I25.10 Atherosclerotic heart disease of native coronary artery without angina pectoris; J44.9 Chronic obstructive pulmonary disease, unspecified; F17.210 Nicotine dependence, cigarettes, uncomplicated; R74.01 Elevation of levels of liver transaminase levels; I49.3 Ventricular premature depolarization; E78.5 Hyperlipidemia, unspecified; R29.6 Repeated falls; Z88.1 Allergy status to other antibiotic agents; Z79.82 Long term (current) use of aspirin; Z79.01 Long term (current) use of anticoagulants; Z79.899 Other long term (current) drug therapy; Z83.3 Family history of diabetes mellitus; Z82.5 Family history of asthma and other chronic lower respiratory diseases; Z82.49 Family history of ischemic heart disease and other diseases of the circulatory system; Y90.8 Blood alcohol level of 240 mg/100 ml or more
CPT/HCPCS: 36415; 71045; 74176; 80053; 80061; 80307; 80320; 81001; 82140; 83036; 83605; 83690; 83735; 83880; 84443; 84484; 85007; 85025; 85027; 86803; 87340; 93005; 93306; 96374; 96375; 97163; 99291; G0378; J2405; J7060